=== PATIENT | female | born 1955 | race Caucasian/White ===

== ENCOUNTER 2019-08-30 07:29 | Observation (INO) | payer BC ==
--- OUTSIDE RECORDS SUMMARY | 2019-08-30 07:37 | XMS REPORT | Continuity of Care Document ---
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 Onset: 09/18/2014 Myalgia & Myositis Unspecified Jung Cannon M.D. Onset: 10/02/2014 Chronic pain syndrome Dale Craig M.D. Onset: 04/03/2015 Taking medication Dale Craig M.D. Onset: 04/03/2015 Diverticulitis of colon Dale Craig M.D. Onset: 04/03/2015 Coronary arteriosclerosis Brain Platt M.D., [facility], [facility] Onset: 04/29/2015 Benign essential hypertension Brain Platt M.D., [facility], [facility] Onset: 2014 Social History Type Date Description Comments Sex Unknown ETOH Use Currently consumes 12-15 drinks/week alcohol Tobacco Use Start: Unknown Patient is a former quit smoking 40 years End: Unknown smoker ago, very light smoker 3-4 cigarettes per day Recreational Drug Use Denies Drug Use Smoking Status Reviewed: 08/07/19 Patient is a former quit smoking 40 years smoker ago, very light smoker 3-4 cigarettes per day Exercise Type/Frequency Exercises sporadically walks occationally Allergies, Adverse Reactions, Alerts Description No Known Drug Allergies Medications Active Medications SIG Qnty Indications Ordering Date Provider Azathioprine 1 tb po qday 30tabs Jacob Davis, 07/10/2019 50mg Tablets [employer]ETING ANALYTICS LEAD Hydroxychloroquine take one tablet 180tabs M33.90 Lavon Clark, 2018 Sulfate by mouth twice MD 200mg Tablets a day Prednisone take 2 tablets 60tabs M33.90 Jacob Davis, 07/05/2019 5mg Tablets once daily as MARKETING ANALYTICS LEAD needed Triamcinolone Acetonide Use on oral 5gm Jacob Davis, 02/12/2019 Dental Paste lesions after MARKETING ANALYTICS LEAD 0.1% Paste meals and before bedtime. Bisoprolol 2 tab by mouth 360tabs I10 Jacob Davis, 05/18/2018 Fumarate/Hydrochlorothiaz everyday MARKETING ANALYTICS LEAD manuel 5-6.25mg Tablets Shingrix 2 doses 6 month 2units Z23 Jacob Davis, 02/27/2018 50mcg Suspension Rec apart [employer]ETING ANALYT[employer] LEAD Simvastatin 1 by mouth 90tabs Noa Trotter, 04/20/2016 20mg Tablets every day M.D. Losartan Potassium 1 by mouth 30tabs I10 Jacob Davis, 12/04/2012 100mg every day MARKETING ANALYTICS LEAD Tablets Hydrocortisone Cream 2.5 Apply a thin Unknown % layer to face up to twice daily Ketoconazole apply thin film Unknown 2% Cream twice daily Tylenol Allergy prn Unknown Multi-Symptom 2-5-325mg Tablets Topiramate 1 tab by mouth 120tabs G43.009 Jacob Davis, 25mg Tablets every morning MARKETING ANALYT[employer] LEAD and 2 tabs every night Zyrtec Allergy 1 by mouth Unknown 10mg Tablets every day Aspirin 1 by mouth Unknown 81mg Tablets every day History Medications Medrol take as directed 21units M33.90 Jacob Davis, 06/25/2019 - 4mg TBPK until finished as MARKETING ANALYTICS LEAD 08/06/2019 medrol dose pack Simvastatin 1 by mouth every 90tabs Jacob Davis, 04/03/2019 - 20mg day MARKETING ANALYT[employer] LEAD 04/08/2019 Tablets Simvastatin 1 by mouth every 90tabs Zsofia Ryan, 04/03/2019 - 20mg day MARKETING ANALYTICS LEAD 04/03/2019 Tablets Simvastatin 2 by mouth every 180tabs Zsofia Ryan, 04/03/2019 - 10mg day MARKETING ANALYT[employer] LEAD 04/03/2019 Tablets Medications Administered in Office Medication SIG Qnty Indications Ordering Provider Date Depomedrol 40MG Juan Ramon Bloom M.D. 08/06/2018 Injection Depomedrol 40MG Juan Ramon Bloom M.D. 08/06/2018 Injection Immunizations CPT Code Status Date Vaccine Lot # [id number] Given 08/22/2018 Tdap - Tetanus/Diptheria/Acellular Pertussis [id number] Given 09/07/2015 Influenza Virus Vaccine, Quadrivalent, Split, [id number] Preservative Free Vital Signs Date Vital Result Comment 08/07/2019 9:50am Height 66 inches 5'6" Weight 174.00 lb Heart Rate 66 /min BP Systolic 141 mmHg BP Diastolic 74 mmHg Body Temperature 97.8 F O2 % BldC Oximetry 99 % BMI (Body Mass Index) 28.1 kg/m2 07/05/2019 10:09am Height 66 inches 5'6" Weight 172.00 lb BMI (Body Mass Index) 27.8 kg/m2 Results Test Date Facility Test Result H/L Range Note Thiopurine [facility] Interpretation See Comment 1 Methyltransferase [address] [place] [address] [phone] 6-Methylmercaptopurine 3.38 nmol/mL/h 3.00-6.66 6Methylmercaptopurine Riboside 4.65 nmol/mL/h Abnormal 5.04-9.57 6-Methylthioguanine riboside 3.43 nmol/mL/h 2.70-5.84 Reviewed By See Comment 2 Protein 06/25/2019 [facility] Total 6.7 g/dL 6.3 - Electrophoresis [address] Protein(Pep) 7.9 [place] [address] [phone] Albumin 3.5 g/dL 3.4-4.7 Alpha-1 Globulin 0.3 g/dL 0.1-0.3 Alpha-2 Globulin 1.1 g/dL Abnormal 0.6-1.0 Beta Globulin 1.1 g/dL 0.7-1.2 Gamma Globulin 0.9 g/dL 0.6-1.6 Albumin/Globulin Ratio 1.06 Impression See Comment 3 Laboratory test 06/25/2019 [facility] Anti Double <12.3 IU/mL 4 [place] [address] AB [phone] Neutrophil 06/25/2019 [facility] C-Anca Negative Negative Cytoplasmic [place] [address] [phone] P-Anca Negative Negative 5 Em Igg AB Reflex 06/25/2019 [facility] SS-A/Ro Antibody <0.[address] [place] [address] [phone] SS-B/La Antibody <0.2 U 7 Sm (Camp) IgG Antibody <0.2 U 8 [employer] Antibody, IgG <0.2 U 9 Scl-70 (Scleroderma) Antibody 0.2 U 10 Irene-1 Antibody <0.2 U 11 Laboratory test 06/25/2019 [facility] Nuclear AB <1:80 12 finding [facility] (Ju) By Ifa (Negative) [place] [address] Igg [phone] Laboratory test 06/25/2019 [facility] C Reactive 13.29 mg/L High <8.0 finding [facility] Protein 1 [place] [address] [phone] Creatine Kinase(CK) 66 U/L Normal 10-223 Comp Metabolic 06/25/2019 [facility] Sodium 135 mmol/L Normal 135-[address] [place] [address] [phone] Potassium 3.9 mmol/L Normal 3.5-5.0 Chloride 99 mmol/L Low 101-111 Co2 Carbon Dioxide 29 mmol/L Normal 22-32 Anion Gap 7 mmol/L Normal 2-11 Glucose 100 mg/dL Normal 70-100 Blood Urea Nitrogen 12 mg/dL Normal 6-24 Creatinine 0.79 mg/dL Normal 0.51-0.95 BUN/Creatinine Ratio 15.2 Normal 8-20 Calcium 9.7 mg/dL Normal 8.6-10.3 Total Protein 6.8 g/dL Normal 6.4-8.9 Albumin 4.5 g/dL Normal 3.2-5.2 Globulin 2.3 g/dL Normal 2-4 Albumin/Globulin Ratio 2.0 Normal 1-3 Total Bilirubin 0.50 mg/dL Normal 0.2-1.0 Alkaline Phosphatase 75 U/L Normal 34-104 Alt 25 U/L Normal 7-52 Ast 26 U/L Normal 13-39 Egfr Non- 73.3 >60 Egfr 88.7 >60 13 Scleroderma AB 06/25/2019 [facility] Scleroderma Ab 0.2 U 14 (SCL70) [address] [place] [address] [phone] Laboratory test 06/25/2019 [facility] Erythrocyte Sed 37 mm/Hr High 0-[address] [place] [address] [phone] Irene-1 Antibody <0.2 U 15 CBC Auto 06/25/2019 [facility] White Blood 7.1 10^3/uL Normal 3.5-10.[address] [place] [place] [address] [phone] Red Blood Count 4.19 10^6/uL Normal 3.70-4.87 Hemoglobin 13.3 g/dL Normal 12.0-16.0 Hematocrit 39 % Normal 35-47 Mean Corpuscular Volume 93 fL Normal 80-97 Mean Corpuscular Hemoglobin 32 pg High 27-31 Mean Corpuscular HGB Conc 34 g/dL Normal 31-36 Red Cell Distribution Width 13 % Normal 10-15 Platelet Count 304 10^3/uL Normal 150-450 Mean Platelet Volume 7.5 fL Normal 7.4-10.4 Abs Neutrophils 4.1 10^3/uL Normal 1.5-7.7 Abs Lymphocytes 2.2 10^3/uL Normal 1.0-4.8 Abs Monocytes 0.6 10^3/uL Normal 0-0.8 Abs Eosinophils 0.2 10^3/uL Normal 0-0.6 Abs Basophils 0.0 10^3/uL Normal 0-0.2 Abs Nucleated RBC 0.0 10^3/uL Granulocyte % 56.9 % Lymphocyte % 31.1 % Monocyte % 8.5 % Eosinophil % 2.9 % Basophil % 0.6 % Nucleated Red Blood Cells % 0.0 Urinalysis Profile 06/25/2019 [facility] Urine Color Straw [address] [place] [address] [phone] Urine Appearance Clear Urine Specific [place] 1.009 Low 1.010-1.030 Urine pH 6.0 Normal 5-9 Urine Urobilinogen Negative Negative Urine Ketones Negative Negative Urine Protein Negative Negative Urine Leukocytes Negative Negative Urine Blood Negative Negative Urine Nitrite Negative Negative Urine Bilirubin Negative Negative Urine Glucose Negative Negative Laboratory 06/06/2019 [facility] Surgical SEE 16, 17 test finding [address] [place] [address] BELOW [phone] Laboratory 02/08/2019 [facility] Vitamin D Total 33.8 Normal 20- test finding [address] 25(Oh) ng/mL 50 [place] [address] [phone] Lipid Profile 02/08/2019 [facility] Triglycerides 227 mg/dL 18 (Trig/Chol/HDL [address] ) [place] [address] [phone] Cholesterol 195 mg/dL 19 HDL Cholesterol 52.4 mg/dL 20 LDL Cholesterol 97 mg/dL 21 Comp Metabolic 02/08/2019 [facility] Sodium 139 mmol/L Normal 135-[address] [place] [address] [phone] Potassium 4.1 mmol/L Normal 3.5-5.0 Chloride 105 mmol/L Normal 101-111 Co2 Carbon Dioxide 28 mmol/L Normal 22-32 Anion Gap 6 mmol/L Normal 2-11 Glucose 104 mg/dL High 70-100 Blood Urea Nitrogen 16 mg/dL Normal 6-24 Creatinine 0.81 mg/dL Normal 0.51-0.95 BUN/Creatinine Ratio 19.8 Normal 8-20 Calcium 9.3 mg/dL Normal 8.6-10.3 Total Protein 6.5 g/dL Normal 6.4-8.9 Albumin 4.2 g/dL Normal 3.2-5.2 Globulin 2.3 g/dL Normal 2-4 Albumin/Globulin Ratio 1.8 Normal 1-3 Total Bilirubin 0.40 mg/dL Normal 0.2-1.0 Alkaline Phosphatase 69 U/L Normal 34-104 Alt 22 U/L Normal 7-52 Ast 23 U/L Normal 13-39 Egfr Non- 71.2 >60 Egfr 86.1 >60 22 Laboratory test 02/06/2019 [facility] Cytology SEE RESULT 23, [address] [place] [address] [phone] 1 *Normal* In this whole blood sample, the profile of activity of thiopurine methyltransferase using three different substrates was normal or essentially normal. ADDITIONAL INFORMATION Liquid Chromatography-Tandem Mass Spectrometry (LC-MS/MS) This test was developed and its performance characteristics determined by [facility] in a manner consistent with CLIA requirements. This test has not been cleared or approved by the U.S. Food and Drug Administration. 2 RESULT: Jonny Rodgers M.D., Ph.D. Test Performed by: [facility] [place] [address] Cooker Tender: Migue Navarro M.D. Ph.D.; CLIA# [id number] 3 RESULT: No apparent monoclonal protein on serum electrophoresis. Test Performed by: [facility] [place] [address] 4 REFERENCE VALUE <30.0 (Negative) Test Performed by: [facility] [place] [address] 5 Negative for cANCA and pANCA patterns by immunofluorescence. ADDITIONAL INFORMATION This test was developed and its performance characteristics determined by [facility] in a manner consistent with CLIA requirements. This test has not been cleared or approved by the U.S. Food and Drug Administration. Test Performed by: [facility] [place] [address] 6 REFERENCE VALUE <1.0 (Negative) 7 REFERENCE VALUE <1.0 (Negative) 8 REFERENCE VALUE <1.0 (Negative) 9 REFERENCE VALUE <1.0 (Negative) 10 REFERENCE VALUE <1.0 (Negative) 11 REFERENCE VALUE <1.0 (Negative) Test Performed by: [facility] [facility] [place] [employer] [place] [address] 12 <1:80 (Negative) REFERENCE VALUE <1:80 (Negative) Test Performed by: [facility] [place] [employer] [place] [address] 13 Because ethnic data is not always readily available, this report includes an eGFR for both -Americans and non- Americans. The National Kidney Disease Education Program (NKDEP) does not endorse the use of the MDRD equation for patients that are not between the ages of 18 and 70, are , have extremes of body size, muscle mass, or nutritional status, or are non- or non-. According to the National Kidney Foundation, irrespective of diagnosis, the stage of the disease is based on the level of kidney function: Stage Description GFR(mL/min/1.73 m(2)) 1 Kidney damage with normal or decreased GFR 90 2 Kidney damage with mild decrease in GFR 60-89 3 Moderate decrease in GFR 30-59 4 Severe decrease in GFR 15-29 5 Kidney failure <15 (or dialysis) 14 REFERENCE VALUE <1.0 (Negative) Test Performed by: [facility] [place] [address] 15 REFERENCE VALUE <1.0 (Negative) Test Performed by: [facility] [place] [address] 16 [id number]:Morphology: violaceous edematous plaques on the upper and lower eyelids extending onto the 17 SEE RESULT BELOW Name: NAYANA OCHOA : [address]: Venus Hanna MD Acct: [id number] Unit: [id number] AGE: 63 Location: [facility] Re06/06/19 SEX: F Status: REG REF SPEC: [id number] ROBERT: 06/06/19-[address]: Venus Hanna MD REQ: [id number] RECD: 06/06/19 STATUS: RICHARD OAKLEY DR: 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 COMMENT: Fungal staining is negative. The histologic features are suspicious for a connective tissue process such as dermatomyositis or lupus erythematosus. Contact dermatitis is also in the histologic differential diagnosis. PRE-OPERATIVE DIAGNOSIS Violaceous edematous plaques on the upper and lower eyelids extending onto the upper cheeks, eyelid dermatitis vs dermatomyositis GROSS DESCRIPTION The specimen is received in formalin labeled, Left Superior Cheek, and consists of a 0.5 cm lyon-white circular skin punch excised to maximum depth 0.3 cm, which is bisected and submitted entirely in one cassette. MICROSCOPIC DESCRIPTION Histologic sections show a punch biopsy of skin excised to include subcutaneous tissue. Patchy parakeratosis overlies epidermis with marked spongiosis, basal layer vacuolar change, focally necrotic keratinocytes, and occasional lymphocytes at the dermal- epidermal junction in interface-like pattern. In the superficial to mid dermis solar elastosis is prominent along with a perivascular inflammatory infiltrate composed of lymphocytes. Deeper levels of CONTINUED ON NEXT PAGE DEPARTMENT OF PATHOLOGY, [address] [place] [address] Donn Connell M.D. Director [facility] # [id number] RUN DATE: 06/07/19 [facility] LAB LIVE PAGE 2 Patient: NAYANA OCHOA [id number] (Continued) MICROSCOPIC DESCRIPTION (Continued) sectioning show similar histologic features. A PAS stain, with appropriately reacting controls, is negative for fungal organisms and shows mild basement membrane thickening. An Alcian blue stain, with appropriately reacting controls, shows mildly increased intradermal mucin. Signed by and Reported on: Rebecca Lopez MD 06/07/19 1545 END OF REPORT DEPARTMENT OF PATHOLOGY, [address] [place] [address] Donn Connell M.D. Director [facility] # [id number] 18 Desirable: <150 Borderline High: 150-199 High: 200-499 Very High: >500 19 Desirable: <200 Borderline High: 200-239 High: >239 20 Low: <40 Desirable: 40-60 High: >60 21 Desirable: <100 Near Optimal: 100-129 Borderline High: 130-159 High: 160-189 Very High: >189 22 Because ethnic data is not always readily available, this report includes an eGFR for both -Americans and non- Americans. The National Kidney Disease Education Program (NKDEP) does not endorse the use of the MDRD equation for patients that are not between the ages of 18 and 70, are , have extremes of body size, muscle mass, or nutritional status, or are non- or non-. According to the National Kidney Foundation, irrespective of diagnosis, the stage of the disease is based on the level of kidney function: Stage Description GFR(mL/min/1.73 m(2)) 1 Kidney damage with normal or decreased GFR 90 2 Kidney damage with mild decrease in GFR 60-89 3 Moderate decrease in GFR 30-59 4 Severe decrease in GFR 15-29 5 Kidney failure <15 (or dialysis) 23 [id number] 24 SEE RESULT BELOW Name: NAYANA OCHOA : [address]: Jacob Davis NP Acct: [id number] Unit: [id number] AGE: 63 Location: [facility] Re02/06/19 SEX: F Status: REG REF SPEC: [id number] ROBERT: 02/06/19-[address] [facility] [address]: Jacob Davis NP REQ: [id number] RECD: 02/06/19 STATUS: SOUT _ ORDERED: TP IMAGE ANALYS, HPV/Thin Prep COMMENTS: [id number] Negative for Intraepithelial lesion or Malignancy Date Time Test Result Flag (u) Normal Range 02/06/19 0957 @ HPV RNA Negative Negative @ @ The high-risk HPV types detected by the assay include: 16, @ 18, 31, 33, 35, 39, 45, 51, 52, 56, 58, 59, 66, and 68. A. Ectocervical/Endocervical Specimen Adequacy: Satisfactory of evaluation Transformation zone component cannot be definitely identified due to presence of atrophy or other hormonal changes Patient Information: HPV: High risk HPV RNA testing regardless of pap results. Actual Specimen Date: 02/06/19 ?: N Post Menopausal?: Y Hysterectomy?: N Previous Abnormal Pap Smears?:N Signed by and Reported on: YOLANDA Porter (ASCP) [id number] This Pap test was evaluated with the assistance of the Pipelinep Test Imaging System. Due to cytologic findings at the tool polishing machine operator microscope, comprehensive manual rescreening by a Instrument Tester may be required. The Pap Smear is a screening test designed to aid in the detection of premalignant and malignant conditions of the uterine cervix. It is not a diagnostic procedure and should not be used as the sole means of detecting cervical cancer. Both false- positive and false- negative reports do occur. Depending on your risk status, a Pap smear should be obtained and evaluated every 1-3 years. END OF REPORT DEPARTMENT OF PATHOLOGY, [address] [place] [address] Donn Connell M.D. 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 10:00a [facility] TONY s, unsp, organ involvement unspecified R21 Rash and other nonspecific skin eruption M35.3 Polymyalgia rheumatica Z79.899 Other skilled nursing (current) drug therapy Z79.52 salvage determiner (current) use of systemic steroids Office 06/25/2019 Rheumatology Jacob 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, unspecified, organ Lavon Clark MD involvement unspecified 08/07/2019 M35.3 Polymyalgia rheumatica Lavon Clark MD 08/07/2019 Z79.899 Other skilled nursing (current) drug therapy Lavon Clark MD 08/07/2019 R53.83 Fatigue Lavon Clark MD 07/05/2019 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, unspecified, organ Zsofia Ryan, MARKETING ANALYTICS LEAD involvement unspecified 07/05/2019 R21 Rash and other nonspecific skin eruption Zsofia Ryan, MARKETING ANALYTICS LEAD 07/05/2019 M35.3 Polymyalgia rheumatica Zsofia Ryan, MARKETING ANALYTICS LEAD 07/05/2019 Z79.899 Other skilled nursing (current) drug therapy Zsofia Ryan, MARKETING ANALYTICS LEAD 07/05/2019 Z79.52 salvage determiner (current) use of systemic steroids Zsofia Ryan , MARKETING ANALYTICS LEAD 06/25/2019 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, unspecified, organ Zsofia Ryan, MARKETING ANALYTICS LEAD involvement unspecified 06/25/2019 R21 Rash and other nonspecific skin eruption Zsofia Ryan, MARKETING ANALYTICS LEAD 06/25/2019 M35.3 Polymyalgia rheumatica Zsofijuan carlos Davis, MARKETING ANALYTICS LEAD 06/25/2019 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 Jacob Davis, MARKETING ANALYTICS LEAD 02/06/2019 Z00.00 Encounter for general adult medical examination TONY Lewis without abno 02/06/2019 I10 Essential (primary) hypertension Jacob Davis, MARKETING ANALYTICS LEAD 02/06/2019 E78.5 Hyperlipidemia, unspecified Zsofia Ryan, MARKETING ANALYTICS LEAD 02/06/2019 M81.8 Other osteoporosis without current pathological Zsofijuan carlos Davis, MARKETING ANALYTICS LEAD fracture 02/06/2019 M25.559 Pain in unspecified hip Jacob Davis, MARKETING ANALYTICS LEAD 02/06/2019 R26.89 Other abnormalities of gait and mobility Marelyofijuan carlos Davis, MARKETING ANALYTICS LEAD 02/06/2019 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 Jacob Davis, MARKETING ANALYTICS LEAD 02/06/2019 Z23 Encounter for immunization Jacob Davis, MARKETING ANALYTICS LEAD 02/06/2019 Z12.4 Encounter for screening for malignant neoplasm TONY Lewis of cervix Plan of Treatment Future Appointment(s):08/14/2019 10:00 am - [facility] Lavon Clark, MD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, unspecified, organ involvement unspecifiedNew Labs:Aldolase, Ordered: Creatine Kinase(CK), Ordered: 08/07/19Erythrocyte Sed Rate, Ordered: C Reactive Protein, Ordered: 08/07/19Quantiferon-TB Gold Plus, Ordered: TSH (Thyroid Stim Horm), Ordered: 08/07/19Miscellaneous Test, Ordered: New Orders:Pulmonary Exercise Test, Ordered: 08/07/19Referral:[facility] Sleep Clinic , Sleep Disord,Diag/ClinicFollow up:3-4 weeks with WnbroiN41.3 Polymyalgia uthkosarorL66.899 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 Eval and treat, thanks. [address] [place] [address] [phone]
--- OUTSIDE RECORDS SUMMARY | 2019-08-30 07:37 | XMS REPORT | Continuity of Care Document ---
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 Onset: 09/18/2014 Myalgia & Myositis Unspecified Jung Cannon M.D. Onset: 10/02/2014 Chronic pain syndrome Dale Craig M.D. Onset: 04/03/2015 Taking medication Dale Craig M.D. Onset: 04/03/2015 Diverticulitis of colon Dale Craig M.D. Onset: 04/03/2015 Coronary arteriosclerosis Brain Platt M.D., [facility] Onset: 04/29/2015 Benign essential hypertension Brain Platt M.D., [facility] Onset: 2014 Social History Type Date Description Comments Sex Unknown ETOH Use Currently consumes 12-15 drinks/week alcohol Tobacco Use Start: Unknown Patient is a former quit smoking 40 years End: Unknown smoker ago, very light smoker 3-4 cigarettes per day Recreational Drug Use Denies Drug Use Smoking Status Reviewed: 07/05/19 Patient is a former quit smoking 40 years smoker ago, very light smoker 3-4 cigarettes per day Exercise Type/Frequency Exercises sporadically walks occationally Allergies, Adverse Reactions, Alerts Description No Known Drug Allergies Medications Active Medications SIG Qnty Indications Ordering Date Provider Hydroxychloroquine take one tablet 60tabs M33.90 Jacob Davis, 07/05/2019 Sulfate by mouth twice EMERGENCY DEPARTMENT MANAGER 200mg Tablets a day Prednisone take 2 tablets 60tabs M33.90 Marelyofijuan carlos Davis, 07/05/2019 5mg Tablets once daily as EMERGENCY DEPARTMENT MANAGER needed Medrol take as 21units M33.90 Jacob Davis, 06/25/2019 4mg TBPK directed until EMERGENCY DEPARTMENT MANAGER finished as medrol dose pack Triamcinolone Acetonide Use on oral 5gm Jacob Davis, 02/12/2019 Dental Paste lesions after EMERGENCY DEPARTMENT MANAGER 0.1% Paste meals and before bedtime. Bisoprolol 2 tab by mouth 360tabs I10 Jacob Davis, 05/18/2018 Fumarate/Hydrochlorothiaz everyday EMERGENCY DEPARTMENT MANAGER manuel 5-6.25mg Tablets Shingrix 2 doses 6 month 2units Z23 Jacob Davis, 02/27/2018 50mcg Suspension Rec apart EMERGENCY DEPARTMENT MANAGER Simvastatin 1 by mouth 90tabs Noa Trotter, 04/20/2016 20mg Tablets every day M.D. Losartan Potassium 1 by mouth 90tabs I10 Jacob Davis, 12/04/2012 100mg every day EMERGENCY DEPARTMENT MANAGER Tablets Hydrocortisone Cream 2.5 Apply a thin Unknown % layer to face up to twice daily Ketoconazole apply thin film Unknown 2% Cream twice daily Tylenol Allergy prn Unknown Multi-Symptom 2-5-325mg Tablets Topiramate 1 tab by mouth 120tabs G43.009 Jacob Davis, 25mg Tablets every morning EMERGENCY DEPARTMENT MANAGER and 2 tabs every night Zyrtec Allergy 1 by mouth Unknown 10mg Tablets every day Aspirin 1 by mouth Unknown 81mg Tablets every day History Medications Simvastatin 1 by mouth every 90tabs Jacob Davis, 04/03/2019 - 20mg Tablets day EMERGENCY DEPARTMENT MANAGER 04/08/2019 Simvastatin 1 by mouth every 90tabs Jacob Davis, 04/03/2019 - 20mg Tablets day EMERGENCY DEPARTMENT MANAGER 04/03/2019 Simvastatin 2 by mouth every 180tabs Jacob Davis, 04/03/2019 - 10mg Tablets day EMERGENCY DEPARTMENT MANAGER 04/03/2019 Medications Administered in Office Medication SIG Qnty Indications Ordering Provider Date Depomedrol 40MG Juan Ramon Bloom M.D. 08/06/2018 Injection Depomedrol 40MG Juan Ramon Bloom M.D. 08/06/2018 Injection Immunizations CPT Code Status Date Vaccine Lot # [id number] Given 08/22/2018 Tdap - Tetanus/Diptheria/Acellular Pertussis [id number] Given 09/07/2015 Influenza Virus Vaccine, Quadrivalent, Split, [id number] Preservative Free Vital Signs Date Vital Result Comment 07/05/2019 10:09am Height 66 inches 5'6" Weight 172.00 lb BMI (Body Mass Index) 27.8 kg/m2 06/25/2019 11:21am Height 66 inches 5'6" Weight 169.50 lb Heart Rate 61 /min BP Systolic 156 mmHg BP Diastolic 90 mmHg Body Temperature 97.2 F O2 % BldC Oximetry 97 % BMI (Body Mass Index) 27.4 kg/m2 Results Test Date Facility Test Result H/L Range Note Protein 06/25/2019 [facility] Total 6.7 g/dL 6.3 - 7.[address] Protein([place] [address] ) [phone] Albumin 3.5 g/dL 3.4-4.7 Alpha-1 Globulin 0.3 g/dL 0.1-0.3 Alpha-2 Globulin 1.1 g/dL Abnormal 0.6-1.0 Beta Globulin 1.1 g/dL 0.7-1.2 Gamma Globulin 0.9 g/dL 0.6-1.6 Albumin/Globulin Ratio 1.06 Impression See Comment 1 Laboratory test 06/25/2019 [facility] Anti Double <12.3 IU/mL [address] [place] [address] AB [phone] Neutrophil 06/25/2019 [facility] C-Anca Negative Negative Cytoplasmic AB [address] [place], [place] [id number] [phone] P-Anca Negative Negative 3 Em Igg AB Reflex 06/25/2019 [facility] SS-A/Ro Antibody <0.[address] [place] [address] [phone] SS-B/La Antibody <0.2 U 5 Sm (Camp) IgG Antibody <0.2 U 6 MAIL CLERK Antibody, IgG <0.2 U 7 Scl-70 (Scleroderma) Antibody 0.2 U 8 Irene-1 Antibody <0.2 U 9 Laboratory test 06/25/2019 [facility] Nuclear AB <1:80 10 finding 101 (Ju) By Ifa (Negative) [place] [address] Igg [phone] Laboratory test 06/25/2019 [facility] C Reactive 13.29 mg/L High <8.[address] Protein 1 [place] [address] [phone] Creatine Kinase(CK) 66 U/L Normal 10-223 Comp Metabolic 06/25/2019 [facility] Sodium 135 mmol/L Normal 135-[address] [place] [address] [phone] Potassium 3.9 mmol/L Normal 3.5-5.0 Chloride 99 [...] Egfr Non- 73.3 >60 Egfr 88.7 >60 11 Scleroderma AB 06/25/2019 [facility] Scleroderma Ab 0.2 U 12 (SCL70) [address] [place] [address] [phone] Laboratory test 06/25/2019 [facility] Erythrocyte Sed 37 mm/Hr High 0-[address] [place] [address] [phone] Irene-1 Antibody <0.2 U 13 CBC Auto 06/25/2019 [facility] White Blood 7.1 10^3/uL Normal 3.5-10.[address] [place] [address] [phone] Red Blood Count 4.19 10^6/uL Normal 3.70-4.87 [...] Blood Cells % 0.0 Urinalysis Profile 06/25/2019 [facility] Urine Color Straw [address] [place], [place] [id number] [phone] Urine Appearance Clear Urine Specific [place] 1.009 Low 1.010-1.030 Urine pH 6.0 Normal 5-9 Urine Urobilinogen Negative Negative Urine Ketones Negative Negative Urine Protein Negative Negative Urine Leukocytes Negative Negative Urine Blood Negative Negative Urine Nitrite Negative Negative Urine Bilirubin Negative Negative Urine Glucose Negative Negative Laboratory 06/06/2019 [facility] Surgical SEE 14, 15 test finding [address] [place] [address] BELOW [phone] Laboratory 02/08/2019 [facility] Vitamin D Total 33.8 Normal 20- test finding [address] 25(Oh) ng/mL 50 [place] [address] [phone] Lipid Profile 02/08/2019 [facility] Triglycerides 227 mg/dL 16 (Trig/Chol/HDL [address] ) [place] [address] [phone] Cholesterol 195 mg/dL 17 HDL Cholesterol 52.4 mg/dL 18 LDL Cholesterol 97 mg/dL 19 Comp Metabolic 02/08/2019 [facility] Sodium 139 mmol/L Normal 135-[address] [place] [address] [phone] Potassium 4.1 mmol/L Normal 3.5-5.0 Chloride 105 [...] Egfr Non- 71.2 >60 Egfr 86.1 >60 20 Laboratory test 02/06/2019 [facility] Cytology SEE RESULT 21, [address] [place] [address] [phone] 1 RESULT: No apparent monoclonal protein on serum electrophoresis. Test Performed by: [facility] - [address] [address] 2 REFERENCE VALUE <30.0 (Negative) Test Performed by: [facility] [address] 3 Negative for cANCA and pANCA patterns by immunofluorescence. ADDITIONAL INFORMATION This test was developed and its performance characteristics determined by [facility] in a manner consistent with CLIA requirements. This test has not been cleared or approved by the U.S. Food and Drug Administration. Test Performed by: [facility] [place] [address] 4 REFERENCE VALUE <1.0 (Negative) 5 REFERENCE VALUE <1.0 (Negative) 6 REFERENCE VALUE <1.0 (Negative) 7 REFERENCE VALUE <1.0 (Negative) 8 REFERENCE VALUE <1.0 (Negative) 9 REFERENCE VALUE <1.0 (Negative) Test Performed by: [facility] [place] [address] 10 <1:80 (Negative) REFERENCE VALUE <1:80 (Negative) Test Performed by: [address] [address] 11 Because ethnic data is not always readily [...] 15-29 5 Kidney failure <15 (or dialysis) 12 REFERENCE VALUE <1.0 (Negative) Test Performed by: [facility] - [address] [address] 13 REFERENCE VALUE <1.0 (Negative) Test Performed by: [address] [address] 14 [id number]:Morphology: violaceous edematous plaques on the upper and lower eyelids extending onto the 15 SEE RESULT BELOW Name: NAYANA OCHOA : [address]: Venus Hanna MD Acct: [id number] Unit: [id number] AGE: 63 Location: [facility] Re06/06/19 SEX: F Status: REG REF SPEC: [id number] ROBERT: 06/06/19-[address]: Venus Hanna MD REQ: [id number] RECD: 06/06/19 STATUS: RICHARD OAKLEY DR: Jacob Davis PUBLIC SAFETY OFFICER _ ORDERED: LEVEL 4, SPEC STAIN ORG, SPEC ST NON-ORG COMMENTS: [id number] FINAL DIAGNOSIS Skin, left superior cheek, biopsy: [...] CONTINUED ON NEXT PAGE DEPARTMENT OF PATHOLOGY, [address] [place] [address] Donn Connell M.D. Director [facility] # [id number] RUN DATE: 06/07/19 [facility] LAB LIVE PAGE 2 Patient: NAYANA OCHOA [id number] (Continued) MICROSCOPIC DESCRIPTION (Continued) sectioning show similar histologic features. A PAS stain, with appropriately reacting controls, is negative for fungal organisms and shows mild basement membrane thickening. An Alcian blue stain, with appropriately reacting controls, shows mildly increased intradermal mucin. Signed by and Reported on: Rebecca Lopez MD 06/07/19 1545 END OF REPORT DEPARTMENT OF PATHOLOGY, [address] [place] [address] Donn Connell M.D. Director [facility] # [id number] 16 Desirable: <150 Borderline High: 150-199 High: 200-499 Very High: >500 17 Desirable: <200 Borderline High: 200-239 High: >239 18 Low: <40 Desirable: 40-60 High: >60 19 Desirable: <100 Near Optimal: 100-129 Borderline High: 130-159 High: 160-189 Very High: >189 20 Because ethnic data is not always readily [...] 15-29 5 Kidney failure <15 (or dialysis) 21 [id number] 22 SEE RESULT BELOW Name: NAYANA OCHOA : [address]: Jacob Davis NP Acct: [id number] Unit: [id number] AGE: 63 Location: [facility] Re02/06/19 SEX: F Status: REG REF SPEC: [id number] ROBERT: 02/06/[address]: Jacob Davis NP REQ: [id number] RECD: 02/06/19 STATUS: SOUT _ ORDERED: TP IMAGE ANALYS, HPV/Thin Prep COMMENTS: [id number] Negative for Intraepithelial lesion or Malignancy Date [...] by and Reported on: YOLANDA Porter (ASCP) 1430 This Pap test was evaluated with the assistance of the AB TastyPrep Test Imaging System. Due to cytologic findings at the conservation enforcement officer microscope, comprehensive manual rescreening by a Hand Striper may be required. The Pap Smear is [...] years. END OF REPORT DEPARTMENT OF PATHOLOGY, [address] [place] [address] Donn Connell M.D. 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 11:30a [facility] EMERGENCY DEPARTMENT MANAGER s, unsp, organ involvement unspecified R21 Rash and other nonspecific skin eruption M35.3 Polymyalgia rheumatica 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 Office Visit 02/06/2019 8:40a [facility] Internal Jacob Davis, Z00.00 [facility] EM[facility]GENCY DEPARTMENT MANAGER general adult medical exam w/o abnormal findings I10 Essential (primary) hypertension E78.5 Hyperlipidemia, unspecified M81.8 Other osteoporosis without current pathological fracture M25.559 Pain in unspecified hip R26.89 Other abnormalities of gait and mobility 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 Z23 Encounter for immunization Z12.4 Encounter for screening for malignant neoplasm of cervix Assessments Date Code Description Provider 07/05/2019 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, unspecified, organ Jacob Davis, EMERGENCY DEPARTMENT MANAGER involvement unspecified 07/05/2019 R21 Rash and other nonspecific skin eruption Jacob Davis, EMERGENCY DEPARTMENT MANAGER 07/05/2019 M35.3 Polymyalgia rheumatica Jacob Davis, EMERGENCY DEPARTMENT MANAGER 07/05/2019 Z79.899 Other terminal supervisor (current) drug therapy Jacob Davis, EMERGENCY DEPARTMENT MANAGER 07/05/2019 Z79.52 buttermaker helper (current) use of systemic steroids Jacob Davis , EMERGENCY DEPARTMENT MANAGER 06/25/2019 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, unspecified, organ Zsjudy Davis, EMERGENCY DEPARTMENT MANAGER involvement unspecified 06/25/2019 R21 Rash and other nonspecific skin eruption Jacob Davis, EMERGENCY DEPARTMENT MANAGER 06/25/2019 M35.3 Polymyalgia rheumatica Jacob Davis, EMERGENCY DEPARTMENT MANAGER 06/25/2019 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 Jacob Davis, EMERGENCY DEPARTMENT MANAGER 02/06/2019 Z00.00 Encounter for general adult medical examination TONY Lewis without abno 02/06/2019 I10 Essential (primary) hypertension Jacob Davis, EMERGENCY DEPARTMENT MANAGER 02/06/2019 E78.5 Hyperlipidemia, unspecified Jacob Davis, EMERGENCY DEPARTMENT MANAGER 02/06/2019 M81.8 Other osteoporosis without current pathological TONY Lewis fracture 02/06/2019 M25.559 Pain in unspecified hip TONY Lewis 02/06/2019 R26.89 Other abnormalities of gait and mobility Jacob Davis, EMERGENCY DEPARTMENT MANAGER 02/06/2019 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 Jacob Davis, EMERGENCY DEPARTMENT MANAGER 02/06/2019 Z23 Encounter for immunization TONY Lewis 02/06/2019 Z12.4 Encounter for screening for malignant neoplasm TONY Lewis of cervix Plan of Treatment Future Appointment(s):08/14/2019 10:00 am - TONY Lewis at [facility] Internal Medicine - [facility]07/05/2019 - GORDON LewisP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, unspecified, organ involvement unspecifiedNew Medication:Hydroxychloroquine Sulfate 200 mg - take one tablet by mouth twice a dayPrednisone 5 mg - take 2 tablets once daily as neededNew Labs:Miscellaneous Test, Ordered: Comments:Dermatomyositis is one of a group of muscle diseases known as the inflammatory myopathies, which arecharacterized by chronic muscle inflammation accompanied by muscle weakness. Dermatomyositis?? cardinal symptom is a skin rash that precedes, accompanies, or follows progressive muscle weakness. You may also experience weight loss, a low-grade fever, inflamed lungs, and be sensitive to light such that the rash or muscle disease gets worse.CausesThe specific underlying cause(s) of dermatomyositis unknown; however, evidence suggests that genetic, immune, and environmental factors play some roleMost cases of dermatomyositis respond to therapy that is directed toward the specific symptoms that are apparent in each individual and thus can vary from one patient to another. The disease is usually more severe and resistant to therapy in individuals with cardiac or pulmonary problems.Skin:Treatment for the skin findings associated with dermatomyositis includes: sun avoidance, sunscreens, topical glucocorticoids, anti-malarial agents, methotrexate, mycophenolate mofetil, and/or intravenous immunoglobulin (IVIg).Muscle: Treatment for the muscle involvement associated with dermatomyositis requires the use of glucocorticoids. Treatment:Will start on hydroxychloroquine today and on Azathioprine in a week if your lab test comes back normal for the enzyme that metabolizing this drug.If you have abnormalityin this enzyme will start on Mtx at 4 tabs/week.I will call next week once I got the lab results.I am giving you Rx for prednisone to take as needed while you are away for your vacationFollow up:f/u with Dr. Clark second week of July.R21 Rash and other nonspecific skin qznsqvomR10.3 Polymyalgia awskgiepfnT10.899 Other terminal supervisor ( current) drug soaarlhX26.52 buttermaker helper (current) use of systemic steroids Functional Status Description No Information Available Mental Status Description No Information Available Referrals Description No Information Available
--- OUTSIDE RECORDS SUMMARY | 2019-08-30 07:37 | XMS REPORT | Continuity of Care Document ---
:1955 External Reference #:[id number] Author Name Lavon Clark MD (transmitted by agent of provider Viviana White) Address [address] [place] [address] Care Team Providers Name Role Phone Randal Campbell III, MD - Internal Care Team Information Medical Delivery Technician [phone] Medicine Problems Active Problems Provider Date Chronic ischemic heart disease Brain Platt M.D., [facility], [facility] Onset: 2013 Essential hypertension Brain Pltat M.D., [facility], [facility] Onset: 04/11/2014 Hyperlipidemia Brain Platt M.D., [facility], [facility] Onset: 04/11/2014 Polymyalgia rheumatica Jung Cannon M.D. Onset: 09/18/2014 Myalgia & Myositis Unspecified Jung Cannon M.D. Onset: 10/02/2014 Chronic pain syndrome Dale Craig M.D. Onset: 04/03/2015 Taking medication Dale Craig M.D. Onset: 04/03/2015 Diverticulitis of colon Dale Craig M.D. Onset: 04/03/2015 Coronary arteriosclerosis Brain Platt M.D., [facility], [facility] Onset: 04/29/2015 Benign essential hypertension Brain Platt M.D., [facility], [facility] Onset: 2014 Social History Type Date [...] qday 30tabs Jacob Davis, 07/10/2019 50mg Tablets [employer] Hydroxychloroquine take one tablet 180tabs M33.90 Lavon Clark, 2018 Sulfate by mouth twice MD 200mg Tablets a day Prednisone take 2 tablets 60tabs M33.90 Jacob Davis, 07/05/2019 5mg Tablets once daily as [employer] needed Triamcinolone Acetonide Use on oral 5gm Jacob Davis, 02/12/2019 Dental Paste lesions after [employer] 0.1% Paste meals and before bedtime. Bisoprolol 2 tab by mouth 360tabs I10 Jacob Davis, 05/18/2018 Fumarate/Hydrochlorothiaz everyday [employer] manuel 5-6.25mg Tablets Shingrix 2 doses 6 month 2units Z23 Jacob Davis, 02/27/2018 50mcg Suspension Rec apart [employer] Simvastatin 1 by mouth 90tabs Noa Trotter, 04/20/2016 20mg Tablets every day M.D. Losartan Potassium 1 by mouth 30tabs I10 Jacob Davis, 12/04/2012 100mg every day [employer] Tablets Hydrocortisone Cream 2.5 Apply a thin Unknown % layer to face up to twice daily Ketoconazole apply thin film Unknown 2% Cream twice daily Tylenol Allergy prn Unknown Multi-Symptom 2-5-325mg Tablets Topiramate 1 tab by mouth 120tabs G43.009 Jacob Davis, 25mg Tablets every morning [employer] and 2 tabs every night Zyrtec Allergy 1 by mouth Unknown 10mg Tablets every day Aspirin 1 by mouth Unknown 81mg Tablets every day History Medications Medrol take as directed 21units M33.90 Jacob Davis, 06/25/2019 - 4mg TBPK until finished as [employer] 08/06/2019 medrol dose pack Simvastatin 1 by mouth every 90tabs Jacob Davis, 04/03/2019 - 20mg day [employer] 04/08/2019 Tablets Simvastatin 1 by mouth every 90tabs Zsofia Ryan, 04/03/2019 - 20mg day [employer] 04/03/2019 Tablets Simvastatin 2 by mouth every 180tabs Zsofia Ryan, 04/03/2019 - 10mg day [employer] 04/03/2019 Tablets Medications Administered in Office Medication SIG Qnty Indications Ordering Provider Date Depomedrol 40MG Juan Ramon Bloom M.D. 08/06/2018 Injection Depomedrol 40MG Juan Ramon Bloom M.D. 08/06/2018 Injection Immunizations CPT Code Status Date Vaccine Lot # [id number] Given 08/22/2018 Tdap - Tetanus/Diptheria/Acellular Pertussis [id number] Given 09/07/2015 Influenza Virus Vaccine, Quadrivalent, Split, [...] Facility Test Result H/L Range Note Thiopurine [facility] Interpretation See Comment 1 Methyltransferase [address] [place] [address] [phone] 6-Methylmercaptopurine 3.38 nmol/mL/h 3.00-6.66 6Methylmercaptopurine Riboside 4.65 nmol/mL/h Abnormal 5.04-9.57 6-Methylthioguanine riboside 3.43 nmol/mL/h 2.70-5.84 Reviewed By See Comment 2 Protein 06/25/2019 [facility] Total 6.7 g/dL 6.3 - Electrophoresis [address] Protein(Pep) 7.9 [place] [address] [phone] Albumin 3.5 g/dL 3.4-4.7 Alpha-1 Globulin 0.3 g/dL 0.1-0.3 Alpha-2 Globulin 1.1 g/dL Abnormal 0.6-1.0 Beta Globulin 1.1 g/dL 0.7-1.2 Gamma Globulin 0.9 g/dL 0.6-1.6 Albumin/Globulin Ratio 1.06 Impression See Comment 3 Laboratory test 06/25/2019 [facility] Anti Double <12.3 IU/mL 4 [place] [address] AB [phone] Neutrophil 06/25/2019 [facility] C-Anca Negative [place] [address] [phone] P-Anca Negative Negative 5 Em Igg AB Reflex 06/25/2019 [facility] SS-A/Ro Antibody <0.[address] [place] [address] [place] [address] [phone] SS-B/La Antibody <0.2 U 7 Sm (Camp) IgG Antibody <0.2 U 8 CHIEF PILOT Antibody, IgG <0.2 U 9 Scl-70 (Scleroderma) Antibody 0.2 U 10 Irene-1 Antibody <0.2 U 11 Laboratory test 06/25/2019 [facility] Nuclear AB <1:80 12 finding [facility] (Ju) By Ifa (Negative) [place] [address] Igg [phone] Laboratory test 06/25/2019 [facility] C Reactive 13.29 mg/L High <8.0 finding [facility] Protein 1 [place] [address] [phone] Creatine Kinase(CK) 66 U/L Normal 10-223 Comp Metabolic 06/25/2019 [facility] Sodium 135 mmol/L Normal 135-145 [place] [address] [phone] Potassium 3.9 mmol/L Normal 3.5-5.0 Chloride 99 [...] Egfr 88.7 >60 13 Scleroderma AB 06/25/2019 [facility] Scleroderma Ab 0.2 U 14 (SCL70) [address] [place], [place] [address] [phone] Laboratory test 06/25/2019 [facility] Erythrocyte Sed 37 mm/Hr High 0-[address] [place] [address] [phone] Irene-1 Antibody <0.2 U 15 CBC Auto 06/25/2019 [facility] White Blood 7.1 10^3/uL Normal 3.5-10.[address] [place] [address] [phone] Red Blood Count 4.19 10^6/uL Normal 3.70-4.87 [...] Blood Cells % 0.0 Urinalysis Profile 06/25/2019 [facility] Urine Color Straw [address] [place] [address] [phone] Urine Appearance Clear Urine Specific Plummer 1.009 Low 1.010-1.030 Urine pH 6.0 Normal 5-9 Urine Urobilinogen Negative Negative Urine Ketones Negative Negative Urine Protein Negative Negative Urine Leukocytes Negative Negative Urine Blood Negative Negative Urine Nitrite Negative Negative Urine Bilirubin Negative Negative Urine Glucose Negative Negative Laboratory 06/06/2019 [facility] Surgical SEE 16, [address] [place] [address] BELOW [phone] Laboratory 02/08/2019 [facility] Vitamin D Total 33.8 Normal 20- test finding [address] 25(Oh) ng/mL 50 [place] [address] [phone] Lipid Profile 02/08/2019 [facility] Triglycerides 227 mg/dL 18 (Trig/Chol/HDL [address] ) [place] [address] [phone] Cholesterol 195 mg/dL 19 HDL Cholesterol 52.4 mg/dL 20 LDL Cholesterol 97 mg/dL 21 Comp Metabolic 02/08/2019 [facility] Sodium 139 mmol/L Normal 135-[address] [place] [address] [phone] Potassium 4.1 mmol/L Normal 3.5-5.0 Chloride 105 [...] Egfr 86.1 >60 22 Laboratory test 02/06/2019 [facility] Cytology SEE RESULT 23, [address] [place] [address] [phone] 1 *Normal* In this whole blood sample, the profile of activity of thiopurine methyltransferase using three different substrates was normal or essentially normal. ADDITIONAL INFORMATION Liquid Chromatography-Tandem Mass Spectrometry (LC-MS/MS) This test was developed and its performance characteristics determined by [facility] in a manner consistent with CLIA requirements. This test has not been cleared or approved by the U.S. Food and Drug Administration. 2 RESULT: Jonny Rodgers M.D., Ph.D. Test Performed by: [place] [address] Health Plan Specialist: Migue Navarro M.D. Ph.D.; CLIA# [id number] 3 RESULT: No apparent monoclonal protein on serum electrophoresis. Test Performed by: [facility] [place] [address] 4 REFERENCE VALUE <30.0 (Negative) Test Performed by: [facility] [place] [address] 5 Negative for cANCA and pANCA patterns by immunofluorescence. ADDITIONAL INFORMATION This test was developed and its performance characteristics determined by [facility] in a manner consistent with CLIA requirements. This test has not been cleared or approved by the U.S. Food and Drug Administration. Test Performed by: [facility] [place] [address] 6 REFERENCE VALUE <1.0 (Negative) 7 REFERENCE VALUE <1.0 (Negative) 8 REFERENCE VALUE <1.0 (Negative) 9 REFERENCE VALUE <1.0 (Negative) 10 REFERENCE VALUE <1.0 (Negative) 11 REFERENCE VALUE <1.0 (Negative) Test Performed by: [facility] [employer] [address] [place] [address] 12 <1:80 (Negative) REFERENCE VALUE <1:80 (Negative) Test Performed by: [facility] [employer] [address] [place] [address] 13 Because ethnic data is not always [...] REFERENCE VALUE <1.0 (Negative) Test Performed by: [facility] [place] [address] 15 REFERENCE VALUE <1.0 (Negative) Test Performed by: [facility] [place] [address] 16 4382-A:Morphology: violaceous edematous plaques on the upper and lower eyelids extending onto the 17 SEE RESULT BELOW Name: NAYANA OCHOA : [address]: Venus Hanna MD Acct: [id number] Unit: [id number] AGE: 63 Location: [facility] Re06/06/19 SEX: F Status: REG REF SPEC: [id number] ROBERT: 06/06/19-[address]: Venus Hanna MD REQ: [id number] RECD: 06/06/19 STATUS: RICHARD OAKLEY DR: Jacob Davis SYSTEMS SOFTWARE MANAGER _ ORDERED: LEVEL 4, SPEC STAIN ORG, SPEC ST NON-ORG COMMENTS: [id number] FINAL DIAGNOSIS Skin, left superior cheek, biopsy: [...] CONTINUED ON NEXT PAGE DEPARTMENT OF PATHOLOGY, [address] [place] [address] Donn Connell M.D. Director [facility] # [id number] RUN DATE: 06/07/19 [facility] LAB LIVE PAGE 2 Patient: NAYANA OCHOA [id number] (Continued) MICROSCOPIC DESCRIPTION (Continued) sectioning show similar histologic features. A PAS stain, with appropriately reacting controls, is negative for fungal organisms and shows mild basement membrane thickening. An Alcian blue stain, with appropriately reacting controls, shows mildly increased intradermal mucin. Signed by and Reported on: Rebecca Lopez MD 06/07/19 1545 END OF REPORT DEPARTMENT OF PATHOLOGY, [address] [place] [address] Donn Connell M.D. Director [facility] # [id number] 18 Desirable: <150 Borderline High: 150-199 High: [...] 5 Kidney failure <15 (or dialysis) 23 [id number] 24 SEE RESULT BELOW Name: NAYANA OCHOA : [address]: Jacob Davis NP Acct: [id number] Unit: [id number] AGE: 63 Location: [facility] Re02/06/19 SEX: F Status: REG REF SPEC: [id number] ROBERT: [birth year][address] [facility] [address]: Jacob Davis NP REQ: [id number] RECD: 02/06/19 STATUS: SOUT _ ORDERED: TP IMAGE ANALYS, HPV/Thin Prep COMMENTS: [id number] Negative for Intraepithelial lesion or Malignancy Date [...] by and Reported on: YOLANDA Porter (ASCP) 9290 This Pap test was evaluated with the assistance of the Inter[employer] Test Imaging System. Due to cytologic findings at the electromagnet crane operator microscope, comprehensive manual rescreening by a Humane Agent may be required. The Pap Smear is [...] years. END OF REPORT DEPARTMENT OF PATHOLOGY, [address] [place] [address] Donn Connell M.D. 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 10:00a [facility] TONY s, unsp, organ involvement unspecified R21 Rash and other nonspecific skin eruption M35.3 Polymyalgia rheumatica Z79.899 Other terminal make up operator (current) drug therapy Z79.52 penitentiary (current) use of systemic steroids Office 06/25/2019 Rheumatology Jacob 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, Visit 11:30a [facility] Rosenthal unsfarhad, organ involvement unspecified R21 Rash and other nonspecific skin eruption M35.3 Polymyalgia rheumatica 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 Office Visit 02/06/2019 8:40a [facility] Internal Jacob Davis, Z00.00 [facility] for [facility] - [facility] [employer]ACH[employer] general adult medical exam w/o abnormal findings [...] rheumatica Lavon Clark MD 08/07/2019 Z79.899 Other alf (current) drug therapy Lavon Clark MD 08/07/2019 R53.83 Fatigue Lavon Clark MD 07/05/2019 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, unspecified, organ Zsofia Ryan, [employer] involvement unspecified 07/05/2019 R21 Rash and other nonspecific skin eruption Zsofia Ryan, [employer] 07/05/2019 M35.3 Polymyalgia rheumatica Zsofia Ryan, [employer] 07/05/2019 Z79.899 Other alf (current) drug therapy Zsofia Ryan, [employer] 07/05/2019 Z79.52 technician terminal and repeater (current) use of systemic steroids Zsofia Ryan , [employer] 06/25/2019 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, unspecified, organ Zsofia Ryan, [employer] involvement unspecified 06/25/2019 R21 Rash and other nonspecific skin eruption Zsofia Ryan, [employer] 06/25/2019 M35.3 Polymyalgia rheumatica Zsofia Ryan, [employer] 06/25/2019 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 Jacob Davis, [employer] 02/06/2019 Z00.00 Encounter for general adult medical examination TONY Lewis without abno 02/06/2019 I10 Essential (primary) hypertension Zsofijuan carlos Davis, [employer] 02/06/2019 E78.5 Hyperlipidemia, unspecified Zsofia Ryan, [employer] 02/06/2019 M81.8 Other osteoporosis without current pathological Zsofia Ryan, [employer] fracture 02/06/2019 M25.559 Pain in unspecified hip Zsofijuan carlos Davis, [employer] 02/06/2019 R26.89 Other abnormalities of gait and mobility Marelyofia Ryan, [employer] 02/06/2019 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 Jacob Davis, [facility] 02/06/2019 Z23 Encounter for immunization Jacob Davis, [employer] 02/06/2019 Z12.4 Encounter for screening for malignant neoplasm TONY Lewis of cervix Plan of Treatment Future Appointment(s):08/29/2019 9:00 am - Lavon Clark MD at [facility] - [facility]08/14/2019 10:00 am - TONY Lewis at [facility] Internal Medicine - [facility]08/07/2019 - Lavon Buitheresa, MD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, unspecified, organ involvement unspecifiedNew Orders:Pulmonary Exercise Test, Ordered: 08/07/19Referral:[facility], Sleep Disord,Diag/ClinicFollow up:3- 4 weeks with TyfehgE61.3 Polymyalgia oomyjnxhtbJ64.899 Other terminal make up operator (current ) drug harhwxdY16.83 Fatigue Functional Status Description No Information Available Mental Status Description No Information Available Referrals Refer to Reason for Referral Status Appt Date [facility] Possible sleep apnea; ongoing fatigue and daytime Sent 00/ somnolence. Eval and treat, thanks. [address] [place] [address] [phone]
--- OUTSIDE RECORDS SUMMARY | 2019-08-30 07:37 | XMS REPORT | Continuity of Care Document ---
:1955 External Reference #:[id number] Author Name TONY Lewis (transmitted by agent of provider Peyton Hernandez) Address [address] [place] [id number] Care Team Providers Name Role Phone Randal Campbell III, MD - Internal Care Team Information [employer] [facility] Problems Active Problems Provider Date Chronic ischemic heart disease Brain Platt M.D., [facility] Onset: 2013 Essential hypertension Brain Platt M.D., [facility] Onset: 04/11/2014 Hyperlipidemia Brain Platt M.D., [facility] Onset: 04/11/2014 Polymyalgia rheumatica Jung Cannon M.D. Onset: 09/18/2014 Myalgia & Myositis Unspecified Jung Cannon M.D. Onset: 10/02/2014 Chronic pain syndrome Dale Craig M.D. Onset: 04/03/2015 Taking medication Dale Craig M.D. Onset: 04/03/2015 Diverticulitis of colon Dale Craig M.D. Onset: 04/03/2015 Coronary arteriosclerosis Brain Platt M.D., [facility] Onset: 04/29/2015 Benign essential hypertension Brain Platt M.D., [facility] Onset: 2014 Social History Type Date Description Comments Sex Unknown ETOH Use Currently consumes 12-15 drinks/week alcohol Recreational Drug Use Denies Drug Use Tobacco Use Start: Unknown Patient is a former End: Unknown smoker Smoking Status Reviewed: 08/14/19 Patient is a former smoker Exercise Type/Frequency Exercises sporadically walks occationally Allergies, Adverse Reactions, Alerts Description No Known Drug Allergies Medications Active Medications SIG Qnty Indications Ordering Date Provider Amoxicillin/Clavulanate take one tablet 14tabs J01.90 Jacob Davis, 08/14 Potassium every 12 hours MASH PROCESSING OPERATOR 875-125mg Tablets for 7 days Alendronate Sodium take one tablet 12tabs M81.0 Jacob Davis, 08/14/2019 70mg Tablets by mouth once a MASH PROCESSING OPERATOR week as directed Hydroxychloroquine take one tablet 180tabs M33.90 Lavon Clark, 2018 Sulfate by mouth twice MD 200mg Tablets a day Prednisone take 2 tablets 60tabs M33.90 Jacob Davis, 07/05/2019 5mg Tablets once daily as MASH PROCESSING OPERATOR needed Triamcinolone Acetonide Use on oral 5gm Jacob Davis, 02/12/2019 Dental Paste lesions after MASH PROCESSING OPERATOR 0.1% Paste meals and before bedtime. Bisoprolol 2 tab by mouth 360tabs I10 Jacob Davis, 05/18/2018 Fumarate/Hydrochlorothiaz everyday MASH PROCESSING OPERATOR manuel 5-6.25mg Tablets Shingrix 2 doses 6 month 2units Z23 Jacob Davis, 02/27/2018 50mcg Suspension Rec apart MASH PROCESSING OPERATOR Simvastatin 1 by mouth 90tabs Noa Trotter, 04/20/2016 20mg Tablets every day M.D. Losartan Potassium 1 by mouth 30tabs I10 Jacob Davis, 12/04/2012 100mg every day MASH PROCESSING OPERATOR Tablets Hydrocortisone Cream 2.5 Apply a thin Unknown % layer to face up to twice daily Tylenol Allergy prn Unknown Multi-Symptom 2-5-325mg Tablets Topiramate 1 tab by mouth 120tabs G43.009 Jacob Davis, 25mg Tablets every morning MASH PROCESSING OPERATOR and 2 tabs every night Zyrtec Allergy 1 by mouth Unknown 10mg Tablets every day Aspirin 1 by mouth Unknown 81mg Tablets every day History Medications Azathioprine 1 tb po qday 30tabs Jacob Davis, 07/10/2019 - 50mg MASH PROCESSING OPERATOR 08/14/2019 Tablets Medrol take as directed 21units M33.90 Jacob Davis, 06/25/2019 - 4mg TBPK until finished MASH PROCESSING OPERATOR 08/06/2019 as medrol dose pack Simvastatin 1 by mouth every 90tabs Zsofia Ryan, 04/03/2019 - 20mg day MASH PROCESSING OPERATOR 04/08/2019 Tablets Simvastatin 1 by mouth every 90tabs Zsofia Ryan, 04/03/2019 - 20mg day MASH PROCESSING OPERATOR 04/03/2019 Tablets Simvastatin 2 by mouth every 180tabs Zsofia Ryan, 04/03/2019 - 10mg day [facility] 04/03/2019 Tablets Medications Administered in Office Medication SIG Qnty Indications Ordering Provider Date Depomedrol 40MG Juan Ramon Bloom M.D. 08/06/2018 Injection Depomedrol 40MG Juan Ramon Bloom M.D. 08/06/2018 Injection Immunizations CPT Code Status Date Vaccine Lot # [id number] Given 08/22/2018 Tdap - Tetanus/Diptheria/Acellular Pertussis [id number] Given 09/07/2015 Influenza Virus Vaccine, Quadrivalent, Split, [id number] Preservative Free Vital Signs Date Vital Result Comment 08/14/2019 9:51am Height 66 inches 5'6" Weight 174.38 lb Heart Rate 65 /min BP Systolic 112 mmHg BP Diastolic 66 mmHg Body Temperature 98.6 F O2 % BldC Oximetry 97 % BMI (Body Mass Index) 28.1 kg/m2 08/07/2019 9:50am Height 66 inches 5'6" Weight 174.00 lb Heart Rate 66 /min BP Systolic 141 mmHg BP Diastolic 74 mmHg Body Temperature 97.8 F O2 % BldC Oximetry 99 % BMI (Body Mass Index) 28.1 kg/m2 Results Test Date Facility Test Result H/L Range Note Thiopurine [facility] Interpretation See Comment 1 Methyltransferase [address] [place] [address] [phone] 6-Methylmercaptopurine 3.38 nmol/mL/h 3.00-6.66 6Methylmercaptopurine Riboside 4.65 nmol/mL/h Abnormal 5.04-9.57 6-Methylthioguanine riboside 3.43 nmol/mL/h 2.70-5.84 Reviewed By See Comment 2 Urinalysis Profile 06/25/2019 [facility] Urine Color Straw [address] [place] [address] [phone] Urine Appearance Clear Urine Specific [place] 1.009 Low 1.010-1.030 Urine pH 6.0 Normal 5-9 Urine Urobilinogen Negative Negative Urine Ketones Negative Negative Urine Protein Negative Negative Urine Leukocytes Negative Negative Urine Blood Negative Negative Urine Nitrite Negative Negative Urine Bilirubin Negative Negative Urine Glucose Negative Negative CBC Auto 06/25/2019 [facility] White Blood 7.1 10^3/uL Normal 3.5-10.[address] [place] [address] [phone] Red Blood Count 4.19 10^6/uL Normal 3.70-4.87 [...] % Nucleated Red Blood Cells % 0.0 Laboratory test 06/25/2019 [facility] Erythrocyte Sed 37 mm/Hr High 0-[address] [place] [address] [phone] Irene-1 Antibody <0.2 U 3 Scleroderma AB 06/25/2019 [facility] Scleroderma Ab 0.2 U 4 (SCL70) [address] [place] [address] [phone] Comp Metabolic 06/25/2019 [facility] Sodium 135 Normal 135-[address] mmol/L 45 [place] [address] [phone] Potassium 3.9 mmol/L Normal 3.5-5.0 Chloride 99 [...] Egfr Non- 73.3 >60 Egfr 88.7 >60 5 Laboratory test 06/25/2019 [facility] C Reactive 13.29 mg/L High <8.[address] [place] [address] [phone] Creatine Kinase(CK) 66 U/L Normal 10-223 Laboratory test 06/25/2019 [facility] Nuclear AB <1:80 (Negative ) 6 finding (Ju) [place] [address] Igg [phone] Em Igg AB Reflex 06/25/2019 [facility] SS-A/Ro <0.[address] [place] [address] [phone] SS-B/La Antibody <0.2 U 8 Sm (Camp) IgG Antibody <0.2 U 9 REEL CART OPERATOR Antibody, IgG <0.2 U 10 Scl-70 (Scleroderma) Antibody 0.2 U 11 Irene-1 Antibody <0.2 U 12 Neutrophil Cytoplasmic 06/25/2019 [facility] C-Anca Negative [place] [address] [phone] P-Anca Negative Negative 13 Laboratory test 06/25/2019 [facility] Anti Double <12.[address] Stranded Dna IU/[place] [address] AB [phone] Protein 06/25/2019 [facility] Total 6.7 g/dL 6.3 - Electrophoresis [address] Protein(Pep) 7.9 [place] [address] [phone] Albumin 3.5 g/dL 3.4-4.7 Alpha-1 Globulin 0.3 g/dL 0.1-0.3 Alpha-2 Globulin 1.1 g/dL Abnormal 0.6-1.0 Beta Globulin 1.1 g/dL 0.7-1.2 Gamma Globulin 0.9 g/dL 0.6-1.6 Albumin/Globulin Ratio 1.06 Impression See Comment 15 Laboratory test 06/06/2019 [facility] Surgical SEE RESULT 16, [address] [place] [address] [phone] 1 *Normal* In this whole blood sample, the profile of activity of thiopurine methyltransferase using three different substrates was normal or essentially normal. ADDITIONAL INFORMATION Liquid Chromatography-Tandem Mass Spectrometry (LC-MS/MS) This test was developed and its performance characteristics determined by [facility] in a manner consistent with CLIA requirements. This test has not been cleared or approved by the U.S. Food and Drug Administration. 2 RESULT: Jonny Rodgers M.D., Ph.D. Test Performed by: [facility] - [address] [address] Power Plant Operations Manager: Migue Navarro M.D. Ph.D.; CLIA# [id number] 3 REFERENCE VALUE <1.0 (Negative) Test Performed by: [facility] - [facility] [address] [place] [address] 4 REFERENCE VALUE <1.0 (Negative) Test Performed by: [facility] [employer] [address] [place] [address] 5 Because ethnic data is not always readily [...] 15-29 5 Kidney failure <15 (or dialysis) 6 <1:80 (Negative) REFERENCE VALUE <1:80 (Negative) Test Performed by: [facility] [employer] [address] [place] [address] 7 REFERENCE VALUE <1.0 (Negative) 8 REFERENCE VALUE <1.0 (Negative) 9 REFERENCE VALUE <1.0 (Negative) 10 REFERENCE VALUE <1.0 (Negative) 11 REFERENCE VALUE <1.0 (Negative) 12 REFERENCE VALUE <1.0 (Negative) Test Performed by: [facility] [place] [address] 13 Negative for cANCA and pANCA patterns by immunofluorescence. ADDITIONAL INFORMATION This test was developed and its performance characteristics determined by [facility] in a manner consistent with CLIA requirements. This test has not been cleared or approved by the U.S. Food and Drug Administration. Test Performed by: [facility] [place] [address] 14 REFERENCE VALUE <30.0 (Negative) Test Performed by: [place] [address] 15 RESULT: No apparent monoclonal protein on serum electrophoresis. Test Performed by: [place] [address] 16 [id number]:Morphology: violaceous edematous plaques on the upper and lower eyelids extending onto the 17 SEE RESULT BELOW Name: NAYANA OCHOA : [address]: Venus Hanna MD Acct: [id number] Unit: [id number] AGE: 63 Location: [facility] Re06/06/19 SEX: F Status: REG REF SPEC: [id number] ROBERT: 06/06/19-[address]: Venus Hanna MD REQ: [id number] RECD: 06/06/19 STATUS: RICHARD OAKLEY DR: Jacob Davis SINGLE NEEDLE TUFTING MACHINE OPERATOR _ ORDERED: LEVEL 4, SPEC STAIN ORG, SPEC ST NON-ORG COMMENTS: [id number] FINAL DIAGNOSIS Skin, left superior cheek, biopsy: [...] CONTINUED ON NEXT PAGE DEPARTMENT OF PATHOLOGY, [facility] [employer] [place], [place] [address] Donn Connell M.D. Director [place] # [id number] RUN DATE: 06/07/19 [facility] LAB LIVE PAGE 2 Patient: NAYANA OCHOA Kassandra [id number] (Continued) MICROSCOPIC DESCRIPTION (Continued) sectioning show similar histologic features. A PAS stain, with appropriately reacting controls, is negative for fungal organisms and shows mild basement membrane thickening. An Alcian blue stain, with appropriately reacting controls, shows mildly increased intradermal mucin. Signed by and Reported on: Rebecca Lopez MD 06/07/19 1545 END OF REPORT DEPARTMENT OF PATHOLOGY, [facility] [employer] [place], [place] [address] Donn Connell M.D. Director [facility] # [id number] Procedures Date Code Description Status 10/19/2018 [id number] Bone Mineral Density Test Completed 10/19/2018 [id number] Mammogram Completed 06/21/2017 [id number] Colonoscopy Completed 10/02/2014 [id number] Bone Mineral Density Test Completed Medical Devices Description No Information Available Encounters Type Date Location Provider Dx Diagnosis Office Visit 07/05/2019 Rheumatology Marelyofia Ryan, M33.90 Dermatopolymyositi 10:00a Services Of [facility] MASH PROCESSING OPERATOR s, unsp, organ involvement unspecified R21 Rash and other nonspecific skin eruption M35.3 Polymyalgia rheumatica Z79.899 Other snf (current) drug therapy 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 Office 06/25/2019 Rheumatology Zsofia 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, Visit 11:30a [facility] Ryan, MASH PROCESSING OPERATOR unsp, organ involvement unspecified R21 Rash and other nonspecific skin eruption M35.3 Polymyalgia rheumatica 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 Assessments Date Code Description Provider 08/14/2019 J01.90 Acute sinusitis, unspecified Zsofia Ryan, MASH PROCESSING OPERATOR 08/14/2019 J30.9 Allergic rhinitis, unspecified Zsofia Ryan, MASH PROCESSING OPERATOR 08/14/2019 R53.83 Fatigue Zsofia Rayn, MASH PROCESSING OPERATOR 08/14/2019 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, unspecified, organ Zsofia Ryan, MASH PROCESSING OPERATOR involvement unspecified 08/14/2019 M81.0 Age-related osteoporosis without current Zsofia Ryan, MASH PROCESSING OPERATOR pathological fracture 08/07/2019 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, unspecified, organ Lavon Clark MD involvement unspecified 08/07/2019 M35.3 Polymyalgia rheumatica Lavon Clark MD 08/07/2019 Z79.899 Other snf (current) drug therapy Lavon Clark MD 08/07/2019 R53.83 Fatigue Lavon Clark MD 07/05/2019 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, unspecified, organ Zsofia Ryan, MASH PROCESSING OPERATOR involvement unspecified 07/05/2019 R21 Rash and other nonspecific skin eruption Jacob Davis, MASH PROCESSING OPERATOR 07/05/2019 M35.3 Polymyalgia rheumatica Jacob Cuevask, MASH PROCESSING OPERATOR 07/05/2019 Z79.899 Other acidizer (current) drug therapy Jacob Cuevask, MASH PROCESSING OPERATOR 07/05/2019 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 Jacob Davis , TONY 06/25/2019 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, unspecified, organ TONY Lewis involvement unspecified 06/25/2019 R21 Rash and other nonspecific skin eruption Jacob Cuevask, MASH PROCESSING OPERATOR 06/25/2019 M35.3 Polymyalgia rheumatica Jacob Ryan, MASH PROCESSING OPERATOR 06/25/2019 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 You may continue taking an antihistamine (Zyrtec) once your symptoms resolved. This may help decrease congestion and your risk for infections in the future. Use nasal saline to moisturize nasal passages. Antibiotics for sinusitis:Overuse of antibiotics have been causing a major increase in antibiotic resistance. Therefore, patients with sinus symptoms should consider taking an antibiotic only if symptoms (including discolored nasal discharge) persist beyond 7-10 days. ( [employer]:)Follow up:PE mid January or earlier if qpunheA85.9 Allergic rhinitis, unspecifiedComments:We need to treat your symptoms very aggressively to prevent bacterial infection. Our goal is to minimize nasal congestion/discharge and prevent inflammation.R53.83 RblkpimC92.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, unspecified, organ involvement unspecifiedComments:Please get labs for Dr. Clark fzsucH37.0 Age-related osteoporosis without current pathological fractureNew Medication:Alendronate Sodium 70 mg - take one tablet by mouth once a week as directedComments:Will check your Vit D level. In general you need Calcium 1200 mg and with Vit D 1000 IU/day. Recheck bone density in 2 years Bisphosphonates first line tx to reduce fracture risk in osteoporosis. They work by reducing bone loss, which results in a net gain of bone mineral density. Clinical trial data have shown benefits of taking bisphosphonates. Optimal treatment duration remains unknown but there has been concern over the long-term impact of bisphosphonate use on bone quality. At present tx for less than 5 year duration is recommended.It has been through that prolonged use of bisphosphonates may lead to a reduction in bone remodelling and the development of micro-fractures and increased bonefragility, resulting in atypical fractures. understanding. Bisphosphonate side effects: Osteonecrosis of the jaw (permanent damage of the bones of the jaw), mostly in people who recently had a dental procedure or had dental disease and in people who received high-dose IV bisphosphonates for cancer treatment. The risk at doses recommended for osteoporosis management is very low. Still, recommend good oral hygiene and regular dental care.Atypical femoral fractures.These occurred in a small percentof people using bisphosphonates snf for their osteoporosis. Functional Status Description No Information Available Mental Status Description No Information Available Referrals Refer to Reason for Referral Status Appt Date [facility] Possible sleep apnea; ongoing fatigue and daytime Sent 00/ somnolence. Eval and treat, thanks. [address] [place] [address] [phone]
[2019-08-30 07:55] LABS: ABS Basophils 0.1 10^3/ul (0-0.2); ABS Eosinophils 0.3 10^3/ul (0-0.6); ABS Lymphocytes 2.3 10^3/ul (1.0-4.8); ABS Monocytes 0.6 10^3/ul (0-0.8); Hematocrit 39 % (35-47); Hemoglobin 13.6 g/dL (12.0-16.0); Lymphocyte % 37.3 %; Mean Corpuscular HGB Conc 35 g/dL (31-36); Mean Corpuscular Hemoglobin 32 pg (27-31); Mean Corpuscular Volume 92 fL (80-97); Mean Platelet Volume 6.8 fL (7.4-10.4); Nucleated Red Blood Cells % 0.1; Platelet Count 263 10^3/uL (150-450); Red Blood Count 4.27 10^6 /uL (3.70-4.87); Red Cell Distribution Width 13 % (10-15); White Blood Count 6.3 10^3/uL (3.5-10.8)
[2019-08-30 08:06] LABS: INR 0.98 (0.82-1.09)
--- NOTE | 2019-08-30 08:06 | ED ---
HPI Chest Pain - HPI Summary HPI Summary: Patient is a 63 y/o F w/ Hx of LAD blockage and cardiac stent in 2000 who presents to [facility] with chief complaint of left-sided chest pain. Sx onset around 0645 08/30/19 when she was awake in her bed. Pain is described as crushing and burning sensation and is noted to have only lasted around a minute. Radiation of pain to neck and left arm is noted but she denies radiation of pain to her back. Patient states that this pain was similar to that she had during her 2001 episode. She states that she has had no medications and no food this morning. FMHx of CABG in mother, who at age 78. Patient consumes alcohol rarely and denies tobacco usage. Patient was followed by Dr. Platt but was dismissed by him a year ago after he left practice. She states that she was told that she "was doing fine" and reports no current diplomatic officer. She notes that her systolic BP has been running lower than her baseline for the past few weeks, stating that she is typically at 140- 150 systolic and that she has been at 110 systolic recently. Vitals in room are pulse 71, o2 100, BP 178/79. Patient notes that she is currently being tested to rule out dermatopolymyositis. Pt does not report any fever, chills, erythema of eyes, sore throat, SOB, cough, abdominal pain, N/V, dysuria, hematuria, myalgia, edema, rash, or dizziness. On triage, pain is rated 0/10, nothing is noted to aggravate/alleviate Sx. Home medications and allergies are reviewed. - History of Current Complaint Chief Complaint: EDChestPainROMI Time Seen by Provider: 08/30/19 07:50 Hx Obtained From: Patient Onset/Duration: Started Hours Ago, Resolved Timing: Intermittent, Lasting Minutes Current Severity: None Pain Intensity: 0 Pain Scale Used: 0-10 Numeric Chest Pain Location: Left Anterior Chest Pain Radiates: Yes Chest Pain Radiates To:: Arm, Neck Character: Burning, Crushing Aggravating Factor(s): Nothing Alleviating Factor(s): Nothing Associated Signs and Symptoms: Positive: Chest Pain, Other: - Pt does not report any fever, chills, erythema of eyes, sore throat, SOB, cough, abdominal pain, N/V, dysuria, hematuria, myalgia, edema, rash, or dizziness. Negative: Dizziness, Shortness of Breath, Swelling, Fever, Chills, Nausea, Cough, Productive Cough, Nonproductive Cough, Abdominal Pain, Calf Pain/Swelling, Vomiting, Edema - Allergy/Home Medications Allergies/Adverse Reactions: Allergies Allergy/AdvReac Type Severity Reaction Status Date / Time No Known Allergies Allergy Verified 08/02/16 07:44 PMH/Surg Hx/FS Hx/Imm Hx Endocrine/Hematology History: Denies: Hx Anticoagulant Therapy, Hx Diabetes Cardiovascular History: Reports: Hx Coronary Artery Disease, Hx Hypertension GI History: Reports: Hx Diverticulosis - w/ diverticulitis requiring admission Musculoskeletal History: Reports: Other Musculoskeletal History - polymyalgia rheumatica Denies: Hx Osteoporosis Sensory History: Reports: Hx Contacts or Glasses Opthamlomology History: Reports: Hx Contacts or Glasses - Cancer History Hx Chemotherapy: No Hx Radiation Therapy: No - Surgical History Surgery Procedure, Year, and Place: HEART ABLASION, STENT @ 2006,, appendectomy Infectious Disease History: No Infectious Disease History: Reports: Hx Clostridium Difficile Denies: Traveled Outside the [place] in Last 30 Days - Family History Known Family History: Positive: Cardiac Disease - Social History Alcohol Use: Daily Alcohol Amount: 1 wine/day Substance Use Type: Reports: None Smoking Status (MU): Never Smoked Tobacco Review of Systems Negative: Fever, Chills Negative: Erythema Negative: Sore Throat Positive: Chest Pain Negative: Shortness Of Breath, Cough Negative: Abdominal Pain, Vomiting, Nausea Negative: dysuria, hematuria Negative: Myalgia, Edema Negative: Rash Neurological: Other - negative - dizziness All Other Systems Reviewed And Are Negative: Yes Physical Exam - Summary Physical Exam Summary: Constitutional: Well-developed, Well-nourished, Alert. (-) Distressed Skin: Warm, Dry HENT: Normocephalic; Atraumatic Eyes: Conjunctiva normal Neck: Musculoskeletal ROM normal neck. (-) JVD, (-) Stridor, (-) Tracheal deviation Cardio: Rhythm regular, rate normal, Heart sounds normal; Intact distal pulses; The pedal pulses are 2+ and symmetric. Radial pulses are 2+ and symmetric. (-) Murmur Pulmonary/Chest wall: Effort normal. (-) Respiratory distress, (-) Wheezes, (-) Rales Abd: Soft, (-) tenderness, (-) Distension, (-) Guarding, (-) Rebound Musculoskeletal: (-) Edema Lymph: (-) Cervical adenopathy Neuro: Alert, Oriented x3 Psych: Mood and affect Normal Triage Information Reviewed: Yes Vital Signs On Initial Exam: Initial Vitals Temp Pulse Resp BP Pulse Ox 97.3 F 78 16 170/74 100 08/30/19 07:34 08/30/19 07:34 08/30/19 07:34 08/30/19 07:34 08/30/19 07:34 Vital Signs Reviewed: Yes Procedures - Sedation Patient Received Moderate/Deep Sedation with Procedure: No Diagnostics - Vital Signs Vital Signs Temp Pulse Resp BP Pulse Ox 08/30/19 07:34 97.3 F 78 16 170/74 100 - Laboratory Result Diagrams: 08/30/19 07:49 08/30/19 07:49 Lab Statement: Any lab studies that have been ordered have been reviewed, and results considered in the medical decision making process. - Radiology CXR Radiology Interpretation Completed By: Radiologist Summary of Radiographic Findings: IMPRESSION: NO ACUTE CARDIOPULMONARY PROCESS BY RADIOGRAPH. THIS REPORT WAS REVIEWED BY DR. FERRER. - EKG 0734 Cardiac Rate: NL - rate of 73 BPM EKG Rhythm: Sinus Rhythm Summary of EKG Findings: EKG showed NSR with rate of 73 BPM, no STEMI. This EKG was reviewed and interpreted by ED physician. Chest Pain Course/Dx - Course Course Of Treatment: Patient is a 63 y/o F w/ Hx of LAD blockage and cardiac stent in 2000 who presents to [facility] with chief complaint of left-sided chest pain. Sx onset around 0645 08/30/19 when she was awake in her bed. Pain is described as crushing and burning sensation and is noted to have only lasted around a minute. Radiation of pain to neck and left arm is noted but she denies radiation of pain to her back. Patient states that this pain was similar to that she had during her 2001 episode. Physical exam is unremarkable. EKG showed NSR with rate of 73 BPM, no STEMI. CXR IMPRESSION: NO ACUTE CARDIOPULMONARY PROCESS BY RADIOGRAPH. Bloodwork was WNL with exception of NCH 32, MPV 6.8, alk phos 105. First trop was negative. During ED course, patient received 324 mg PO. Patient's case was discussed with Dr. Gomez Dr. Gomez accepts for admission. Differential Dx of angina, [place], GERD, PNA. Diagnosis of unstable angina. - Chest Pain Differential Diagnosis/HQI/PQRI: Acute [place], Angina, Other: - PNA, GERD - Diagnoses Provider Diagnoses: Unstable angina - Provider Notifications Discussed Care Of Patient With: Torie Gomez Time Discussed With Above Provider: 09:11 Instructed by Provider To: Other - Patient's case was discussed with Dr. Gomez , Dr. Gomez accepts for admission. - Critical Care Time Critical Care Time: 30-74 min - 35 minutes CCT Discharge ED - Sign-Out/Discharge Documenting (check all that apply): Patient Departure - admit - Discharge Plan Condition: Stable Disposition: ADMITTED TO [facility] Referrals: Jacob Davis NP [Primary Care Provider] - Fly Valencia DO [Medical Doctor] - - Attestation Statements Document Initiated by Scribe: Yes Documenting Scribe: SARAH CORREA Provider For Whom Scribe is Documenting (Include Credential): AGNIESZKA FERRER MD Scribe Attestation: SARAH Go, scribed for AGNIESZKA FERRER MD on 08/30/19 at 0918. Status of Scribe Document: Ready
[2019-08-30 08:12] LABS: Albumin 4.2 g/dL (3.2-5.2); Albumin/Globulin Ratio 1.8 (1-3); BUN/Creatinine Ratio 15.8 (8-20); EGFR African American 92.7 (>60); EGFR Non-African American 76.6 (>60); Globulin 2.3 g/dL (2-4); Potassium 3.8 mmol/L (3.5-5.0); Total Bilirubin 0.4 mg/dL (0.2-1.0); Total Protein 6.5 g/dL (6.4-8.9)
[2019-08-30 08:14] LABS: Troponin I 0.01 ng/mL (<0.04)
[2019-08-30] MEDS ORDERED: Aspirin 81 mg CHEW TAB* 81 MG TAB.CHEW PO ONE (09:04)
[2019-08-30] MEDS ORDERED: Acetaminophen TAB* 325 MG PO PRN (09:52)
--- NOTE | 2019-08-30 13:04 | HP ---
CC: TONY Lewis * ADMISSION HISTORY AND PHYSICAL: DATE OF ADMISSION: 08/30/19 PRIMARY CARE PROVIDER: TONY Lewis. ATTENDING PHYSICIAN: Dr. Torie Spence.* (DICTATED BY MIKE KWON NP) CHIEF COMPLAINT: Left-sided chest pain. HISTORY OF PRESENT ILLNESS: Ms. Robledo is a very pleasant 63-year-old female patient with a history of coronary artery disease and hypertension that presents in the emergency department today with complaint of crushing, left- sided chest pressure at 6:45 this morning. The patient states that when she awoke this morning she experienced the chest pain, which felt "exactly like when I had my heart attack in 2000." The patient states that the quality of the chest pain was pressure and burning when she moved in bed to rollover and get her cellphone to call her . She said the pain did not change at all. It did radiate up to her jaw and left neck. She did not have any acute shortness of breath, diaphoresis, or nausea, but she has endorsed fatigue over the last couple of weeks and some exercise intolerance, but otherwise she has not had any further symptoms. She did become concern again because this symptom was very similar to which she had back in 2000 when she discovered that she did have a lesion in the LAD that was 95%. At that time, she did have a diagnostic cath at [facility], but was sent out to [facility] for stenting. The patient's is also at the bedside. He states that she has had multiple stress tests and 1 cardiac cath since then. They believe that there may be some additional coronary artery disease that was not progressive enough to be addressed on the last cardiac cath, which was several years ago, but they are unsure. The patient states she used to follow with Dr. Platt when he was still in the office but has not had a cardiology followup in about 2 years. Her troponin was negative in the ED. There were no acute ST segment changes on her EKG; however, given the constellation of symptoms, we were requested by the ED physician to admit the patient for observation for chest pain, rule out ACS. The patient also reports that she has had some low blood pressure at home. She does measure her blood pressure, and she has noted some systolic blood pressures in the low 110s and low 100s, which is very unusual for her. Her blood pressure has a tendency to be in the 140s to 150s. She was attributing her fatigue lately to her low blood pressures. PAST MEDICAL HISTORY: Coronary artery disease, hypertension, polymyalgia rheumatica, and hyperlipidemia. PAST SURGICAL HISTORY: Cardiac stent in 2000. SOCIAL HISTORY: The patient briefly smoked for 2 years in college and denies any alcohol use, any drug use. She is retired for the past 5 years. She lives at home with her Cam who is her healthcare proxy. He can be reached at . ALLERGIES: She has no known drug allergies. FAMILY HISTORY: Mother had coronary artery disease, at age 78. Father with diabetes mellitus, who in his 80s. No other family history reported. REVIEW OF SYSTEMS: Ten-point review of systems is otherwise negative except as noted in HPI above. PHYSICAL EXAMINATION GENERAL: Revealed a well-appearing female, well nourished, and in no acute distress. VITAL SIGNS: Blood pressure 154/79, heart rate 62, respiratory rate 16, O2 saturation 99% on room air with a temperature of 97.3. HEENT: The patient is atraumatic, normocephalic. She has PERRLA. She does have some erythema in the lower lid region and some erythema to the sclerae. Otherwise, there is no exudate or drainage from the eyes. Oral mucosa is moist. Tongue is midline. NECK: Supple, nontender. No JVD noted. No carotid bruits auscultated. Rate and rhythm are regular. LUNGS: Clear bilaterally to auscultation with no wheezing, rhonchi, or rales. ABDOMEN: Soft, nontender, nondistended. Positive bowel sounds in all 4 quadrants. No organomegaly noted. : Deferred. MUSCULOSKELETAL: There is no clubbing, no cyanosis, no pedal edema. She has + 2 distal pulses palpable. Full range of motion. Grossly motor and sensation are intact. NEUROLOGIC: Grossly intact with no focal deficits. PSYCHIATRIC: She is alert and oriented x3, cooperative and appropriate. LABORATORY DATA: WBCs 6.3, RBCs 4.27, hemoglobin 13.6, hematocrit 39, platelets 263. Sodium 137, potassium 3.8, chloride 103, BUN 12, creatinine 0.76. Glucose 94, calcium 9.0, AST 32, ALT 38, alk phos 105, troponin 0.01, albumin 4.2, globulin 2.3, albumin-globulin ratio 1.8. INR is 0.98. IMAGING: Chest x-ray shows no acute cardiopulmonary process. EKG from 7:30 this morning shows regular sinus rhythm, the rate is 73. She has 1 PAC, but otherwise no acute ST segment changes, no further ectopy noted on her 12- lead. IMPRESSION: This is a 63-year-old female patient with a history of coronary artery disease and stenting in 2000 that presents today with crushing left- sided chest pain that has resolved spontaneously. PLAN: The patient will be admitted to observation. DIAGNOSES: 1. Chest pain, rule out acute coronary syndrome. The patient's initial troponin was negative. She is pending for second troponin. If that is negative , she will have a stress echo this afternoon to rule her out. If the stress echo is negative, she can be discharged to home with outpatient followup. I do believe the patient would benefit from reestablishing a relationship with Cardiology as an outpatient and a referral should be made. 2. Hypertension. Her blood pressure, although she states has been low at home , is currently back at her baseline at this time. She should continue her home medications, which she had taken this morning prior to her arrival. These should be continued. 3. History of polymyalgia rheumatica. The patient states she has currently been following up with Dr. Clark from Rheumatology as she had been on prednisone for a long time, but their feeling is that it is not currently polymyalgia rheumatica and may be a different rheumatologic condition. Again, this is something she should follow up with as an outpatient. 4. Fluids, electrolytes, and nutrition: The patient will be n.p.o. for her test this afternoon. 5. Code status is full. 6. DVT prophylaxis: She is ambulatory and she has [id number] risk. 7. Disposition: Admitted to observation. The rest of the patient's course will be determined by further diagnostics, laboratories, and any other input from other providers as warranted during this admission. This plan of care has been discussed with Dr. Torie Spence, the attending on this admission, she is in agreement with the plan. TIME SPENT: 65 minutes on admission plan of care. MIKE KWON, WATER SERVICE SUPERVISOR [id number]/[facility] #: [id number] LESLEE
[2019-08-30] MEDS ORDERED: Topiramate TAB(*) 25 MG PO SCH ×2 (14:00→21:00)
[2019-08-30 19:12] VITALS: BP 174/89
--- NOTE | 2019-08-31 00:19 | DS ---
CC: TONY Lewis; Dr. Fly Valencia * DISCHARGE SUMMARY: DATE OF ADMISSION: 08/30/19 DATE OF DISCHARGE: 08/30/19 PRIMARY CARE PROVIDER: TONY Lewis ATTENDING DISCHARGE: Torie Spence MD * (DICTATED BY MIKE KWON NP) CARDIOLOGY: Dr. Fly Valencia. HOSPITAL COURSE: Please refer to admitting H and P from earlier today, but in short, Ms. Robledo is a 63-year-old female patient with a history of coronary artery disease and hypertension, who presented to the emergency department with a complaint of left-sided chest pain at 6:45 this morning. She was admitted to the hospital for observation for chest pain rule out ACS. She underwent a stress echo earlier today. Her stress echo was suboptimal because the patient cannot get up to full heart rate, she was only at 72% of expected rate secondary to fatigue; however, she did not show any acute ischemic changes on her EKG and no wall motion abnormalities during the test. It should also be noted that her troponins were negative. Troponin values that were recorded at 7 :45, 11 o'clock, and 1 o'clock today were 0.01, 0.02, 0.02. She had no further abnormalities in her blood work. Her EKG was also normal, it was regular sinus rhythm with no ectopy. She had 1 isolated [address] but no ST segment changes and no arrhythmias on telemetry for the duration of her stay today. The patient was readied for discharge this afternoon. I did have an extensive conversation with the patient regarding her diagnostics that were completed today. She is very worried because of her history of DE in 2000 and stenting to her LAD. Because of the type of chest pain she had this morning, she states felt very similar to the episode she had in 2001, which resulted in stenting and a 95% occlusion of her LAD. I did explain to the patient that if she had any further chest pain for any duration or any other symptoms of anginal equivalent, for example shortness of breath, diaphoresis, any exertional dyspnea, or additional symptomatology that she should return back to the emergency department for additional evaluation. I also instructed the patient that she should follow up with her primary care and reestablish her relationship with Cardiology as an outpatient. The patient was agreeable to this plan as was her and they were agreeable to discharge today. DISCHARGE DIAGNOSES: As follows: 1. Chest pain. 2. History of hypertension. 3. History of polymyalgia rheumatica. 4. History of hyperlipidemia. DISCHARGE MEDICATIONS: Include: 1. Losartan 100 mg p.o. daily. 2. Zyrtec 10 mg p.o. daily. 3. Bisoprolol/hydrochlorothiazide 5/6.25 mg 1 tablet p.o. daily. 4. Aspirin 81 mg daily. 5. Simvastatin 80 mg p.o. daily. 6. Topamax 25 mg p.o. 2 times a day. FOLLOWUPS: The patient was instructed to follow up with her primary care provider, Dr. Jacob Davis, in the next week and also Dr. Fly Valencia of Cardiology also on the next week. DIET: Heart-healthy diet as tolerated. ACTIVITY: Progress activity as tolerated. DISPOSITION: The patient was discharged to home in stable condition. The patient stated understanding of her discharge instructions, medications, and followups. TIME SPENT: 35 minutes on discharge planning. MIKE KWON, AMANDO [id number]/[facility] #: [id number] LESLEE
[2019-08-31] MEDS ORDERED: Hydrochlorothiazide TAB* 25 MG PO SCH (09:00)
[2019-08-31] MEDS ORDERED: Aspirin 81 mg CHEW TAB* 81 MG TAB.CHEW PO SCH (09:00)
[2019-08-31] MEDS ORDERED: BISOPROLOL PO SCH (09:00)
[2019-08-31] MEDS ORDERED: Losartan TAB* 25 MG PO SCH (09:00)
[2019-08-31] MEDS ORDERED: HYDROCHLOROTHIAZIDE PO SCH (09:00)
[2019-08-31] MEDS ORDERED: Bisoprolol TAB* 5 MG PO SCH (09:00)
[2019-08-31] MEDS ORDERED: Atorvastatin* 40 MG TAB PO SCH (09:00)
== END 2019-08-30 18:30 | disposition home or self-care (01) ==
LOC: ED 07:29 → MEDTELE 09:55
PROVIDERS: ADMIT Internal Medicine; ATTEND Internal Medicine
DX: I25.110 Atherosclerotic heart disease of native coronary artery with unstable angina pectoris (principal); I10 Essential (primary) hypertension; R07.9 Chest pain, unspecified; M35.3 Polymyalgia rheumatica; E78.5 Hyperlipidemia, unspecified; Z79.82 Long term (current) use of aspirin; Z79.899 Other long term (current) drug therapy
CPT/HCPCS: 36415; 71045; 80053; 84484; 85025; 85610; 93005; 93351; 99284; A9270-GY; G0378

== ENCOUNTER 2019-09-04 10:15 | Observation (INO) | payer BC ==
--- OUTSIDE RECORDS SUMMARY | 2019-09-04 10:31 | XMS REPORT | Continuity of Care Document ---
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 Onset: 09/18/2014 Myalgia & Myositis Unspecified Jung Cannon M.D. Onset: 10/02/2014 Chronic pain syndrome Dale Craig M.D. Onset: 04/03/2015 Taking medication Dale Craig M.D. Onset: 04/03/2015 Diverticulitis of colon Dale Craig M.D. Onset: 04/03/2015 Coronary arteriosclerosis Brain Platt M.D., [facility] Onset: 04/29/2015 Benign essential hypertension Brain Platt M.D., [facility] Onset: 2014 Social History Type Date Description [...] Medications SIG Qnty Indications Ordering Date Provider Fluticasone Propionate use 2 sprays in 16units Jacob Davis, 08/15/2019 each nostril GLASS MAKER 50mcg/Act Suspension one time a day Amoxicillin/Clavulanate take one tablet 14tabs J01.90 Jacob Davis, 08/14 Potassium every 12 hours GLASS MAKER 875-125mg Tablets for 7 days Alendronate Sodium take one tablet 12tabs M81.0 Jacob Daivs, 08/14/2019 70mg Tablets by mouth once a GLASS MAKER week as directed Hydroxychloroquine take one tablet 180tabs M33.90 Lavon Clark, 2018 Sulfate by mouth twice MD 200mg Tablets a day Prednisone take 2 tablets 60tabs M33.90 Jacob Davis, 07/05/2019 5mg Tablets once daily as GLASS MAKER needed Triamcinolone Acetonide Use on oral 5gm Jacob Davis, 02/12/2019 Dental Paste lesions after GLASS MAKER 0.1% Paste meals and before bedtime. Bisoprolol 2 tab by mouth 360tabs I10 Jacob Davis, 05/18/2018 Fumarate/Hydrochlorothiaz everyday GLASS MAKER manuel 5-6.25mg Tablets Shingrix 2 doses 6 month 2units Z23 Jacob Davis, 02/27/2018 50mcg Suspension Rec apart GLASS MAKER Simvastatin 1 by mouth 90tabs Noa Trotter, 04/20/2016 20mg Tablets every day M.D. Losartan Potassium 1 by mouth 30tabs I10 Jacob Davis, 12/04/2012 100mg every day GLASS MAKER Tablets Hydrocortisone Cream 2.5 Apply a thin Unknown % layer to face up to twice daily Tylenol Allergy prn Unknown Multi-Symptom 2-5-325mg Tablets Topiramate 1 tab by mouth 120tabs G43.009 Jacob Davis, 25mg Tablets every morning GLASS MAKER and 2 tabs every night Zyrtec Allergy 1 by mouth Unknown 10mg Tablets every day Aspirin 1 by mouth Unknown 81mg Tablets every day History Medications Azathioprine 1 tb po qday 30tabs Jacob Davis, 07/10/2019 - 50mg GLASS MAKER 08/14/2019 Tablets Medrol take as directed 21units M33.90 Jacob Davis, 06/25/2019 - 4mg TBPK until finished GLASS MAKER 08/06/2019 as medrol dose pack Simvastatin 1 by mouth every 90tabs Zsofia Ryan, 04/03/2019 - 20mg day GLASS MAKER 04/08/2019 Tablets Simvastatin 1 by mouth every 90tabs Zsofia Ryan, 04/03/2019 - 20mg day GLASS MAKER 04/03/2019 Tablets Simvastatin 2 by mouth every 180tabs Zsofia Ryan, 04/03/2019 - 10mg day GLASS MAKER 04/03/2019 Tablets Medications Administered in Office Medication SIG Qnty Indications Ordering Provider Date Depomedrol 40MG Juan Ramon Bloom M.D. 08/06/2018 Injection Depomedrol 40MG Juan Ramon Bloom M.D. 08/06/2018 Injection Immunizations CPT Code Status Date Vaccine Lot # [id number] Given 08/22/2018 Tdap - Tetanus/Diptheria/Acellular Pertussis [id number] Given 09/07/2015 Influenza Virus Vaccine, Quadrivalent, Split, [...] (Body Mass Index) 28.1 kg/m2 Results Test Acquired Date Facility Test Result H/L Range Note Comp Metabolic 08/30/2019 [facility] Sodium 137 mmol/L Normal 135-[address] [place] [address] [phone] Potassium 3.8 mmol/L Normal 3.5-5.0 Chloride 103 mmol/L Normal 101-111 Co2 Carbon Dioxide 27 mmol/L Normal 22-32 Anion Gap 7 mmol/L Normal 2-11 Glucose 94 mg/dL Normal 70-100 Blood Urea Nitrogen 12 mg/dL Normal 6-24 Creatinine 0.76 mg/dL Normal 0.51-0.95 BUN/Creatinine Ratio 15.8 Normal 8-20 Calcium 9.0 mg/dL Normal 8.6-10.3 Total Protein 6.5 g/dL Normal 6.4-8.9 Albumin 4.2 g/dL Normal 3.2-5.2 Globulin 2.3 g/dL Normal 2-4 Albumin/Globulin Ratio 1.8 Normal 1-3 Total Bilirubin 0.40 mg/dL Normal 0.2-1.0 Alkaline Phosphatase 105 U/L High 34-104 Alt 38 U/L Normal 7-52 Ast 32 U/L Normal 13-39 Egfr Non- 76.6 >60 Egfr 92.7 >60 1 Laboratory test 08/30/2019 [facility] Troponin-I 0.01 <0.04 [address] (TnI) ng/[place] [address] [phone] CBC Auto Diff 08/30/2019 [facility] White Blood 6.3 Normal 3.5 -10.[address] Count 10^3/[place] [address] [phone] Red Blood Count 4.27 10^6/uL Normal 3.70-4.87 Hemoglobin 13.6 g/dL Normal 12.0-16.0 Hematocrit 39 % Normal 35-47 Mean Corpuscular Volume 92 fL Normal 80-97 Mean Corpuscular Hemoglobin 32 pg High 27-31 Mean Corpuscular HGB Conc 35 g/dL Normal 31-36 Red Cell Distribution Width 13 % Normal 10-15 Platelet Count 263 10^3/uL Normal 150-450 Mean Platelet Volume 6.8 fL Low 7.4-10.4 Abs Neutrophils 3.0 10^3/uL Normal 1.5-7.7 Abs Lymphocytes 2.3 10^3/uL Normal 1.0-4.8 Abs Monocytes 0.6 10^3/uL Normal 0-0.8 Abs Eosinophils 0.3 10^3/uL Normal 0-0.6 Abs Basophils 0.1 10^3/uL Normal 0-0.2 Abs Nucleated RBC 0.0 10^3/uL Granulocyte % 48.1 % Lymphocyte % 37.3 % Monocyte % 8.8 % Eosinophil % 5.0 % Basophil % 0.8 % Nucleated Red Blood Cells % 0.1 Inr/Protime 08/30/2019 [facility] Inr 0.98 Normal 0.82-1.[address] [place] [address] [phone] Laboratory test 08/20/2019 [facility] Aldolase <pending> finding [address] [place] [address] [phone] Creatine Kinase(CK) <pending> Erythrocyte Sed Rate <pending> C Reactive Protein <pending> Laboratory test 08/20/2019 [facility] Ferritin <pending> [place] [address] [phone] Laboratory test 08/20/2019 [facility] Vitamin D Total <pending> finding [address] 25(Oh) [place] [address] [phone] TSH (Thyroid Stim Horm) <pending> Miscellaneous Test <pending> Urinalysis Profile 08/20/2019 [facility] Urine Color K[place] [place] [address] [phone] Urine Appearance Cloudy Urine Specific [place] 1.018 Normal 1.010-1.030 Urine pH 6.0 Normal 5-9 Urine Urobilinogen Negative Negative Urine Ketones Trace Abnormal Negative Urine Protein Negative Negative Urine Leukocytes 2+ Abnormal Negative Urine Blood Negative Negative Urine Nitrite Negative Negative Urine Bilirubin Negative Negative Urine Glucose Negative Negative Urine White Blood Cell 2+(11-20/hpf) Abnormal Absent Urine Red Blood Cell Trace(0-2/hpf) Absent Urine Bacteria Absent Absent Urine Squamous Epithelial Cell Present Abnormal Absent Urine Hyaline Casts Present Abnormal Absent Urine Culture And 08/20/2019 [facility] Urine Culture SEE RESULT [address] [place] [address] [phone] Laboratory test 08/20/2019 [facility] Creatine 36 U/L Normal 10-[address] Kinase(CK) 23 [place] [address] [phone] Iron & Iron 08/20/2019 [facility] Iron 134 g/dL Normal 50-[address] [place] [address] [phone] Unsaturated Iron Binding < 385 g/dL Total Iron Binding Capacity 400 g/dL Normal 250-450 Transferrin 286 mg/dL Normal 203-362 % Iron Saturation 34 % Normal 15-55 Laboratory test 08/20/2019 [facility] Ferritin 387.3 ng/mL High 11-[address] [place] [address] [phone] TSH (Thyroid Stim Horm) 1.37 mcIU/mL Normal 0.34-5.60 C Reactive Protein 29.78 mg/L High <8.01 Vitamin D Total 25(Oh) 38.0 ng/mL Normal 20-50 5 Erythrocyte Sed Rate 35 mm/Hr High 0-29 Quantiferon-TB 08/20/2019 [facility] QuantiferonTb Negative Negative 6 [address] Plus [address] [place] [address] [phone] TB1 Ag minus Nil Result 0.00 IU/mL TB2 Ag minus Nil Result 0.03 IU/mL Mitogen minus Nil Result 12.86 IU/mL Nil Result 0.06 IU/mL Thiopurine 07/05/2019 [facility] Interpretation See Comment 7 Methyltransferase [address] [place] [address] [phone] 6-Methylmercaptopurine 3.38 nmol/mL/h 3.00-6.66 6Methylmercaptopurine Riboside 4.65 nmol/mL/h Abnormal 5.04-9.57 6-Methylthioguanine riboside 3.43 nmol/mL/h 2.70-5.84 Reviewed By See Comment 8 Urinalysis Profile 06/25/2019 [facility] Urine Color [address] [place] [address] [phone] Urine Appearance Clear Urine Specific [place] 1.009 Low 1.010-1.030 Urine pH 6.0 Normal 5-9 Urine Urobilinogen Negative Negative Urine Ketones Negative Negative Urine Protein Negative Negative Urine Leukocytes Negative Negative Urine Blood Negative Negative Urine Nitrite Negative Negative Urine Bilirubin Negative Negative Urine Glucose Negative Negative CBC Auto 06/25/2019 [facility] White Blood 7.1 10^3/uL Normal 3.5-10.[address] [place] [address] [phone] Red Blood Count 4.19 10^6/uL Normal 3.70-4.87 [...] Blood Cells % 0.0 Laboratory test 06/25/2019 [facility] Erythrocyte Sed 37 mm/Hr High 0-[address] [place] [address] [phone] Irene-1 Antibody <0.2 U 9 Scleroderma AB 06/25/2019 [facility] Scleroderma Ab 0.2 U 10 (SCL70) [address] [place] [address] [phone] Comp Metabolic 06/25/2019 [facility] Sodium 135 Normal 135-[address] mmol/L 45 [place] [address] [phone] Potassium 3.9 mmol/L Normal 3.5-5.0 Chloride 99 [...] Non- 73.3 >60 Egfr 88.7 >60 11 Laboratory test 06/25/2019 [facility] C Reactive 13.29 mg/L High <8.[address] [place] [address] [phone] Creatine Kinase(CK) 66 U/L Normal 10-223 Laboratory test 06/25/2019 [facility] Nuclear AB <1:80 (Negative ) [address] (Ju) [place] [address] Igg [phone] Em Igg AB Reflex 06/25/2019 [facility] SS-A/Ro <0.2 U [address] [place] [address] [phone] SS-B/La Antibody <0.2 U 14 Sm (Camp) IgG Antibody <0.2 U 15 LAP GRINDER Antibody, IgG <0.2 U 16 Scl-70 (Scleroderma) Antibody 0.2 U 17 Irene-1 Antibody <0.2 U 18 Neutrophil Cytoplasmic 06/25/2019 [facility] C-Anca Negative Negative AB [address] [place] [address] [phone] P-Anca Negative Negative 19 Laboratory test 06/25/2019 [facility] Anti Double <12.3 [address] Stranded Dna IU/[place] [address] AB [phone] Protein 06/25/2019 [facility] Total 6.7 g/dL 6.3 - Electrophoresis [address] Protein(Pep) 7.9 [place] [address] [phone] Albumin 3.5 g/dL 3.4-4.7 Alpha-1 Globulin 0.3 g/dL 0.1-0.3 Alpha-2 Globulin 1.1 g/dL Abnormal 0.6-1.0 Beta Globulin 1.1 g/dL 0.7-1.2 Gamma Globulin 0.9 g/dL 0.6-1.6 Albumin/Globulin Ratio 1.06 Impression See Comment 21 Laboratory test 06/06/2019 [facility] Surgical SEE RESULT 22, [address] [place] [address] [phone] 1 Because ethnic data is not always readily [...] 15-29 5 Kidney failure <15 (or dialysis) 2 Troponin-I testing on Plasma Separator Tubes (PST) has a known false positive rate of 0.20-0.40%. All positive troponins reflex immediately to secondary confirmatory testing. Using the [employer] DxI 800 Access Immunoassay systems, the 99th percentile upper reference limit was demonstrated to be < 0.03 ng/mL. 3 Standard intensity warfarin therapeutic range: 2.0-3.0 High intensity warfarin therapeutic range: 2.5-3.5 4 SEE RESULT BELOW Name: DONNAYANA L : [address]: Lavon Clark MD Acct: [id number] Unit: [id number] AGE: 63 Location: LAB Re08/20/19 SEX: F Status: REG REF SPEC: [id number] ROBERT: 08/20/[address]: Lavon Clark MD REQ: [id number] RECD: 08/20/196910 STATUS: COMP _ SOURCE: URINE SPDESC: ORDERED: Urine Culture Procedure Result Reported Site Urine Culture Final 08/21/19- 1327 ML No Growth (<1,000 CFU/mL) * ML - Main Lab . END OF REPORT DEPARTMENT OF PATHOLOGY, [address] [place] [address] Donn Connell M.D. Director [facility] # [id number] 5 Total 25-Hydroxyvitamin D2 and D3 (25-OH-VitD) <10 ng/mL (severe deficiency) 10-19 ng/mL (mild to moderate deficiency) 20-50 ng/mL (optimum levels) 51-80 ng/mL (increased risk of hypercalciuria) >80 ng/mL (toxicity possible) 6 M. tuberculosis infection NOT likely 7 *Normal* In this whole blood sample, the profile of activity of thiopurine methyltransferase using three different substrates was normal or essentially normal. ADDITIONAL INFORMATION Liquid Chromatography-Tandem Mass Spectrometry (LC-MS/MS) This test was developed and its performance characteristics determined by [facility] in a manner consistent with CLIA requirements. This test has not been cleared or approved by the U.S. Food and Drug Administration. 8 RESULT: Jonny Rodgers M.D., Ph.D. Test Performed by: [facility] [place] [id number] Privacy Manager: Migue Navarro M.D. Ph.D.; CLIA# [id number] 9 REFERENCE VALUE <1.0 (Negative) Test Performed by: [facility] - [address] [address] 10 REFERENCE VALUE <1.0 (Negative) Test Performed by: [facility] [place] [address] 11 Because ethnic data is not always [...] 5 Kidney failure <15 (or dialysis) 12 <1:80 (Negative) REFERENCE VALUE <1:80 (Negative) Test Performed by: [facility] [employer] Vacc[employer] - [facility] [employer] [address] [place] [address] 13 REFERENCE VALUE <1.0 (Negative) 14 REFERENCE VALUE <1.0 (Negative) 15 REFERENCE VALUE <1.0 (Negative) 16 REFERENCE VALUE <1.0 (Negative) 17 REFERENCE VALUE <1.0 (Negative) 18 REFERENCE VALUE <1.0 (Negative) Test Performed by: [employer] [facility] [employer] [facility] - [facility] [employer] [address] [place] [address] 19 Negative for cANCA and pANCA patterns by immunofluorescence. ADDITIONAL INFORMATION This test was developed and its performance characteristics determined by [facility] in a manner consistent with CLIA requirements. This test has not been cleared or approved by the U.S. Food and Drug Administration. Test Performed by: [facility] - [address] [address] 20 REFERENCE VALUE <30.0 (Negative) Test Performed by: [address] [address] 21 RESULT: No apparent monoclonal protein on serum electrophoresis. 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 Director [facility] # [id number] RUN DATE: 06/07/19 [facility] LAB LIVE PAGE 2 Patient: OCHOANAYANA Kassandra [id number] (Continued) MICROSCOPIC DESCRIPTION (Continued) sectioning show similar histologic features. A PAS stain, with appropriately reacting controls, is negative for fungal organisms and shows mild basement membrane thickening. An Alcian blue stain, with appropriately reacting controls, shows mildly increased intradermal mucin. Signed by and Reported on: Rebecca Lopez MD 06/07/19 1545 END OF REPORT DEPARTMENT OF PATHOLOGY, [address] [place] [address] Donn Connell M.D. 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, unsp, organ involvement unspecified M81.0 Age-related osteoporosis w/o current pathological fracture Office 08/07/2019 Rheumatology Lavon 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, Visit 10:00a Services Of Sandra Clark MD unsp, organ involvement Ccmob unspecified M35.3 Polymyalgia rheumatica Z79.899 Other termite treater (current) drug therapy R53.83 Other fatigue R21 Rash and other nonspecific skin eruption Office 07/05/2019 Rheumatology Zsofia 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, Visit 10:00a Services Of TONY Rosenthal unsp, organ involvement unspecified R21 Rash and other nonspecific skin eruption M35.3 Polymyalgia rheumatica Z79.899 Other termite treater (current) drug therapy Z79.52 terminal gauger supervisor (current) use of systemic steroids Office 06/25/2019 Rheumatology Zsofia 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, Visit 11:30a Services Of TONY Rosenthal unsp, organ involvement unspecified R21 Rash and other nonspecific skin eruption M35.3 Polymyalgia rheumatica 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 Assessments Date Code Description Provider 08/14/2019 J01.90 Acute sinusitis, unspecified Zsofia Ryan, GLASS MAKER 08/14/2019 J30.9 Allergic rhinitis, unspecified Zsofia Ryan, GLASS MAKER 08/14/2019 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, unspecified, organ Zsofia Ryan, GLASS MAKER involvement unspecified 08/14/2019 M81.0 Age-related osteoporosis without current Zsofia Ryan, GLASS MAKER pathological fracture 08/07/2019 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, unspecified, organ Lavon Clark MD involvement unspecified 08/07/2019 M35.3 Polymyalgia rheumatica Lavon Clark MD 08/07/2019 Z79.899 Other alf (current) drug therapy Lavon Clark MD 08/07/2019 R53.83 Fatigue Lavon Clark MD 08/07/2019 R21 Rash and other nonspecific skin eruption Lavon Clark MD 07/05/2019 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, unspecified, organ Zsofia Ryan, GLASS MAKER involvement unspecified 07/05/2019 R21 Rash and other nonspecific skin eruption Zsofia Ryan, GLASS MAKER 07/05/2019 M35.3 Polymyalgia rheumatica Zsofia Ryan, GLASS MAKER 07/05/2019 Z79.899 Other alf (current) drug therapy Zsofia Ryan, GLASS MAKER 07/05/2019 Z79.52 FPC (current) use of systemic steroids Zsofia Ryan , GLASS MAKER 06/25/2019 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, unspecified, organ TONY Lewis involvement unspecified 06/25/2019 R21 Rash and other nonspecific skin eruption TONY Lewis 06/25/2019 M35.3 Polymyalgia rheumatica Jacob Davis, TONY 06/25/2019 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 ( [employer]:)Follow up:PE mid January or earlier if [id number] Allergic rhinitis, unspecifiedComments:We need to treat your symptoms very aggressively to prevent bacterial infection. Our goal is to minimize nasal congestion/discharge and prevent inflammation.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, unspecified, organ involvement unspecifiedComments:Please get labs for Dr. Clark yulrzG28.0 Age-related osteoporosis without current pathological fractureNew Medication:Alendronate [...] in a small percentof people using bisphosphonates alf for their osteoporosis. Functional Status Description No Information Available Mental Status Description No Information Available Referrals Refer to Reason for Referral Status Appt Date [facility] Possible sleep apnea; ongoing fatigue and daytime Sent 00/ somnolence. Eval and treat, thanks. [address] [place] [address] [phone]
--- OUTSIDE RECORDS SUMMARY | 2019-09-04 10:31 | XMS REPORT | Continuity of Care Document ---
:1955 External Reference #:[id number] Author Name Yo Betancourt M.D. (transmitted by agent of provider Tiffani Amezcua ) Address [address] [address] Care Team Providers Name Role Phone Jacob Davis PLASTERING CONTRACTOR - Nurse Care Team Information Phytopathology Teacher [phone] Practitioner Problems Active Problems Provider Date Chronic ischemic heart disease Brain Platt M.D., [facility] Onset: 2013 Essential hypertension Brain Platt M.D., [facility] Onset: 04/11/2014 Hyperlipidemia Brain Platt M.D., [facility] Onset: 04/11/2014 Polymyalgia rheumatica Jung Cannon M.D. Onset: 09/18/2014 Myalgia & Myositis Unspecified Jung Cannon M.D. Onset: 10/02/2014 Chronic pain syndrome Dale Craig M.D. Onset: 04/03/2015 Taking medication Dale Craig M.D. Onset: 04/03/2015 Diverticulitis of colon Dale Craig M.D. Onset: 04/03/2015 Coronary arteriosclerosis Brain Platt M.D., [facility] Onset: 04/29/2015 Benign essential hypertension Brain Platt M.D., [facility] Onset: 2014 Social History Type Date Description Comments Sex Unknown ETOH Use Consumes 2 glasses of wine per day Recreational Drug Use Denies Drug Use Tobacco Use Start: Unknown End: Patient is a former Socially x2 years Unknown smoker in 1970 Smoking Status Reviewed: 09/03/19 Patient is a former Socially x2 years smoker in 1970s Exercise Type/Frequency Does not exercise Allergies, Adverse Reactions, Alerts Description No Known Drug Allergies Medications Active Medications SIG Qnty Indications Ordering Date Provider Amlodipine Besylate 1 by mouth 30tabs I20.8 Yo DuarteDaisy 09/03/2019 2.5mg every day Nacho Betancourt Tablets Losartan Potassium 1 by mouth 60tabs I10 Yo FDaisy 09/03/2019 25mg Tablets every day Nacho Betancourt Nitroglycerin 1 sl q5 mins x3 25tabs I20.8 Yo FDaisy 09/03/2019 0.4mg Tablets Sub as needed for Nacho Betancourt chest pain Fluticasone Propionate use 2 sprays [facility]2019 each nostril PLASTERING CONTRACTOR 50mcg/Act Suspension one time a day Alendronate Sodium take one tablet 12tabs M81.0 [facility] Ryan, 08/14/2019 70mg Tablets by mouth once a PLASTERING CONTRACTOR week as directed Hydroxychloroquine take one tablet 180tabs M33.90 Lavon Clark, 2018 Sulfate by mouth twice MD 200mg Tablets a day Prednisone take 2 tablets 60tabs M33.90 [facility], 07/05/2019 5mg Tablets once daily as PLASTERING CONTRACTOR needed Triamcinolone Acetonide Use on oral 5gm [facility] Ryan, 02/12/2019 Dental Paste lesions after PLASTERING CONTRACTOR 0.1% Paste meals and before bedtime as needed Bisoprolol 2 tab by mouth 360tabs I10 [facility] Ryan, 05/18/2018 Fumarate/Hydrochlorothiaz everyday PLASTERING CONTRACTOR manuel 5-6.25mg Tablets Shingrix 2 doses 6 month 2units Z23 [facility], 02/27/2018 50mcg Suspension Rec apart Received PLASTERING CONTRACTOR 1st dose 09/02/19 Simvastatin 1 by mouth 90tabs Noa Trotter, 04/20/2016 20mg Tablets every day M.D. Hydrocortisone Cream 2.5 Apply a thin Unknown % layer to face up to twice daily as needed Tylenol Allergy 1 tablet by Unknown Multi-Symptom mouth daily 2-5-325mg Tablets Topiramate 1 tab by mouth 120tabs G43.009 [facility] Ryan, 25mg Tablets every morning PLASTERING CONTRACTOR and 2 tabs every night Zyrtec Allergy 1 by mouth Unknown 10mg Tablets every day Aspirin 1 by mouth Unknown 81mg Tablets every day History Medications Amoxicillin/Clavulanate take one 14tabs J01.90 Zsofi 08/14/2019 - Potassium tablet every [facility], [facility] 09/02/2019 875-125mg Tablets 12 hours for 7 days Azathioprine 1 tb po qday 30tabs Zsofia 07/10/2019 - 50mg Tablets [facility] 08/14/2019 Medrol take as 21units M33.90 Zsofia 06/25/2019 - 4mg TBPK directed until [facility] 08/06/2019 finished as medrol dose pack Simvastatin 1 by mouth 90tabs Zsofia 04/03/2019 - 20mg Tablets every day [facility] 04/08/2019 Simvastatin 1 by mouth 90tabs Zsofia 04/03/2019 - 20mg Tablets every day [facility] 04/03/2019 Simvastatin 2 by mouth 180tabs Zsofia 04/03/2019 - 10mg Tablets every day [facility] 04/03/2019 Medications Administered in Office Medication SIG Qnty Indications Ordering Provider Date [facility] pharmacy administered Unknown 09/02/2019 Injection Depomedrol 40MG Juan Ramon Bloom M.D. 08/06/2018 Injection Depomedrol 40MG Juan Ramon Bloom M.D. 08/06/2018 Injection Immunizations CPT Code Status Date Vaccine Lot # [id number] Given 08/22/2018 Tdap - Tetanus/Diptheria/Acellular Pertussis [id number] Given 09/07/2015 Influenza Virus Vaccine, Quadrivalent, Split, [id number] Preservative Free Vital Signs Date Vital Result Comment 09/03/2019 3:27pm Height 66 inches 5'6" Weight 171.75 lb with shoes Heart Rate 64 /min radial,regular BP Systolic Sitting 140 mmHg Ra, reg cuff BP Diastolic Sitting 76 mmHg Ra, reg cuff BP Systolic Standing 142 mmHg Ra, reg cuff BP Diastolic Standing 82 mmHg Ra, reg cuff BMI (Body Mass Index) 27.7 kg/m2 Ejection Fraction 56% echo 11/08/10 08/14/2019 9:51am Height 66 inches 5'6" Weight 174.38 lb Heart Rate 65 /min BP Systolic 112 mmHg BP Diastolic 66 mmHg Body Temperature 98.6 F O2 % BldC Oximetry 97 % BMI (Body Mass Index) 28.1 kg/m2 Results Test Acquired Date Facility Test Result H/L Range Note Inr/Protime 08/30/2019 [facility] Inr 0.98 Normal 0.82-1.[address] [place] [address] [phone] Comp Metabolic 08/30/2019 [facility] Sodium 137 mmol/L Normal 135-[address] [place] [address] [phone] Potassium 3.8 mmol/L Normal 3.5-5.0 Chloride 103 [...] Egfr Non- 76.6 >60 Egfr 92.7 >60 2 CBC Auto 08/30/2019 [facility] White Blood 6.3 10^3/uL Normal 3.5-10.[address] [place] [address] [phone] Red Blood Count 4.27 10^6/uL Normal 3.70-4.87 [...] % Nucleated Red Blood Cells % 0.1 Laboratory test 08/30/2019 [facility] Troponin-I (TnI) 0.01 ng/ mL <0.04 3 finding [address] [place] [address] [phone] Quantiferon-TB 08/20/2019 [facility] QuantiferonTb Negative Negative 4 Gold Plus [address] [facility] [place] [address] [phone] TB1 Ag minus Nil Result 0.00 IU/mL TB2 Ag minus Nil Result 0.03 IU/mL Mitogen minus Nil Result 12.86 IU/mL Nil Result 0.06 IU/mL Laboratory test 08/20/2019 [facility] Ferritin 387.3 ng/mL High 11-307 finding [address] [place] [address] [phone] TSH (Thyroid Stim Horm) 1.37 mcIU/mL Normal 0.34-5.60 C Reactive Protein 29.78 mg/L High <8.01 Vitamin D Total 25(Oh) 38.0 ng/mL Normal 20-50 5 Erythrocyte Sed Rate 35 mm/Hr High 0-29 Iron & Iron Binding 08/20/2019 [facility] Iron 134 g/dL Normal 50-212 [address]acity [address] [place] [address] [phone] Unsaturated Iron Binding < 385 g/dL Total Iron Binding Capacity 400 g/dL Normal 250-450 Transferrin 286 mg/dL Normal 203-362 % Iron Saturation 34 % Normal 15-55 Laboratory test 08/20/2019 [facility] Creatine 36 U/L Normal 10-[address] Kinase(CK) [place], [place] [address] [phone] Urine Culture And 08/20/2019 [facility] Urine Culture SEE [address] [place] [address] BELOW [phone] Laboratory test 08/20/2019 [facility] Aldolase <pending> finding [address] [place] [address] [phone] Creatine Kinase(CK) <pending> Erythrocyte Sed Rate <pending> C Reactive Protein <pending> Laboratory test finding 08/20/2019 [facility] Ferritin <pending > [address] [place] [address] [phone] Urinalysis Profile 08/20/2019 [facility] Urine Color Kajal [address] [place] [address] [phone] Urine Appearance Cloudy Urine Specific [place] 1.018 Normal 1.010-1.030 Urine pH 6.0 Normal [...] Absent Urine Hyaline Casts Present Abnormal Absent Laboratory test 08/20/2019 [facility] Vitamin D Total <pending> finding 101 25(Oh) [place] [address] [phone] TSH (Thyroid Stim Horm) <pending> Miscellaneous Test <pending> Thiopurine 07/05/2019 [facility] Interpretation See Comment [address] [place] [address] [phone] 6-Methylmercaptopurine 3.38 nmol/mL/h 3.00-6.66 6Methylmercaptopurine Riboside 4.65 nmol/mL/h Abnormal 5.04-9.57 6-Methylthioguanine riboside 3.43 nmol/mL/h 2.70-5.84 Reviewed By See Comment 8 CBC Auto 06/25/2019 [facility] White Blood 7.1 10^3/uL Normal 3.5-10.[address] [place] [address] [phone] Red Blood Count 4.19 10^6/uL Normal 3.70-4.87 [...] Blood Cells % 0.0 Laboratory test 06/25/2019 [facility] Erythrocyte Sed 37 mm/Hr High 0-[address] [place] [address] [phone] Irene-1 Antibody <0.2 U 9 Scleroderma AB 06/25/2019 [facility] Scleroderma Ab 0.2 U 10 (SCL70) [address] [place] [address] [phone] Comp Metabolic 06/25/2019 [facility] Sodium 135 Normal 135-[address] mmol/L 45 [place] [address] [phone] Potassium 3.9 mmol/L Normal 3.5-5.0 Chloride 99 [...] Egfr 88.7 >60 11 Laboratory test 06/25/2019 [facility] C Reactive 13.29 mg/L High <8.[address] [place] [address] [phone] Creatine Kinase(CK) 66 U/L Normal 10-223 Laboratory test 06/25/2019 [facility] Nuclear AB <1:80 (Negative ) [address] (Ju) [place] [address] Igg [phone] Em Igg AB Reflex 06/25/2019 [facility] SS-A/Ro <0.[address] [place] [address] [phone] SS-B/La Antibody <0.2 U 14 Sm (Camp) IgG Antibody <0.2 U 15 DIRECTOR OF THE [employer] [facility] Antibody, IgG <0.2 U 16 Scl-70 (Scleroderma) Antibody 0.2 U 17 Irene-1 Antibody <0.2 U 18 Neutrophil Cytoplasmic 06/25/2019 [facility] C-Anca Negative [place] [address] [phone] P-Anca Negative Negative 19 Laboratory test 06/25/2019 [facility] Anti Double <12.[address] Stranded Dna IU/[place] [address] AB [phone] Protein 06/25/2019 [facility] Total 6.7 g/dL 6.3 - Electrophoresis [address] Protein(Pep) 7.9 [place] [address] [phone] Albumin 3.5 g/dL 3.4-4.7 Alpha-1 Globulin 0.3 g/dL 0.1-0.3 Alpha-2 Globulin 1.1 g/dL Abnormal 0.6-1.0 Beta Globulin 1.1 g/dL 0.7-1.2 Gamma Globulin 0.9 g/dL 0.6-1.6 Albumin/Globulin Ratio 1.06 Impression See Comment 21 Urinalysis Profile 06/25/2019 [facility] Urine Color Straw [address] [place] [address] [phone] Urine Appearance Clear Urine Specific [place] 1.009 Low 1.010-1.030 Urine pH 6.0 Normal 5-9 Urine Urobilinogen Negative Negative Urine Ketones Negative Negative Urine Protein Negative Negative Urine Leukocytes Negative Negative Urine Blood Negative Negative Urine Nitrite Negative Negative Urine Bilirubin Negative Negative Urine Glucose Negative Negative Laboratory test 06/06/2019 [facility] Surgical SEE RESULT 22, [address] [place] [address] [phone] 1 Standard intensity warfarin therapeutic range: 2.0-3.0 High intensity warfarin therapeutic range: 2.5-3.5 2 Because ethnic data is not always readily [...] 15-29 5 Kidney failure <15 (or dialysis) 3 Troponin-I testing on Plasma Separator Tubes (PST) has a known false positive rate of 0.20-0.40%. All positive troponins reflex immediately to secondary confirmatory testing. Using the ZOZI DxI 800 Access Immunoassay systems, the 99th percentile upper reference limit was demonstrated to be < 0.03 ng/mL. 4 M. tuberculosis infection NOT likely 5 Total 25-Hydroxyvitamin D2 and D3 (25-OH-VitD) <10 ng/mL (severe deficiency) 10-19 ng/mL (mild to moderate deficiency) 20-50 ng/mL (optimum levels) 51-80 ng/mL (increased risk of hypercalciuria) >80 ng/mL (toxicity possible) 6 SEE RESULT BELOW Name: NAYANA OCHOA : [address]: Lavon Clark MD Acct: [id number] Unit: [id number] AGE: 63 Location: LAB Re08/20/19 SEX: F Status: REG REF SPEC: [id number] ROBERT: 08/20/[address] [facility] [address]: Lavon Clark MD REQ: [id number] RECD: 08/20/19 STATUS: COMP _ SOURCE: URINE SPDESC: ORDERED: Urine Culture Procedure Result Reported Site Urine Culture Final 08/21/19- 1327 ML No Growth (<1,000 CFU/mL) * - [facility] . END OF REPORT DEPARTMENT OF PATHOLOGY, [address] [place] [address] Donn Connell M.D. Director [facility] # [id number] 7 *Normal* In this whole blood sample, the profile of activity of thiopurine methyltransferase using three different substrates was normal or essentially normal. ADDITIONAL INFORMATION Liquid Chromatography-Tandem Mass Spectrometry (LC-MS/MS) This test was developed and its performance characteristics determined by [facility] in a manner consistent with CLIA requirements. This test has not been cleared or approved by the U.S. Food and Drug Administration. 8 RESULT: Jonny Rodgers M.D., Ph.D. Test Performed by: [facility] [place] [id number] Principal Automation Engineer: Migue Navarro M.D. Ph.D.; CLIA# [id number] 9 REFERENCE VALUE <1.0 (Negative) Test Performed by: [facility] [place] [address] 10 REFERENCE VALUE <1.0 (Negative) Test Performed by: [facility] [place] [address] 11 Because ethnic data is not always [...] REFERENCE VALUE <1:80 (Negative) Test Performed by: [facility] [place] [employer] Addiction Medicine (ABAM) [address] [employer] (ABAM) [place] [address] 13 REFERENCE VALUE <1.0 (Negative) 14 REFERENCE VALUE <1.0 (Negative) 15 REFERENCE VALUE <1.0 (Negative) 16 REFERENCE VALUE <1.0 (Negative) 17 REFERENCE VALUE <1.0 (Negative) 18 REFERENCE VALUE <1.0 (Negative) Test Performed by: [facility] [place] [address] 19 Negative for cANCA and pANCA patterns by immunofluorescence. ADDITIONAL INFORMATION This test was developed and its performance characteristics determined by [facility] in a manner consistent with CLIA requirements. This test has not been cleared or approved by the U.S. Food and Drug Administration. Test Performed by: [facility] [place] [address] 20 REFERENCE VALUE <30.0 (Negative) Test Performed by: [facility] [place] [address] 21 RESULT: No apparent monoclonal protein on serum electrophoresis. Test Performed by: [place] [address] 22 4382-A:Morphology: violaceous edematous plaques on the upper and lower eyelids extending onto the 23 SEE RESULT BELOW Name: NAYANA OCHOA : [address]: Venus Hanna MD Acct: [id number] Unit: [id number] AGE: 63 Location: [facility] Re/08/19 SEX: F Status: REG REF SPEC: [id number] ROBERT: 06/06/[address] [facility] [address]: Venus Hanna MD REQ: [id number] RECD: 06/06/19 STATUS: RICHARD OAKLEY DR: Jacob Davis HARD TILE SETTER APPRENTICE _ ORDERED: LEVEL 4, SPEC STAIN ORG, SPEC ST NON-ORG COMMENTS: [id number] FINAL DIAGNOSIS Skin, left superior cheek, biopsy: [...] CONTINUED ON NEXT PAGE DEPARTMENT OF PATHOLOGY, [address] [place] [address] Donn Connell M.D. Director [facility] # [id number] RUN DATE: 06/07/19 [facility] LAB LIVE PAGE 2 Patient: DONNAYANA L [id number] (Continued) MICROSCOPIC DESCRIPTION (Continued) sectioning show similar histologic features. A PAS stain, with appropriately reacting controls, is negative for fungal organisms and shows mild basement membrane thickening. An Alcian blue stain, with appropriately reacting controls, shows mildly increased intradermal mucin. Signed by and Reported on: Rebecca Lopez MD 06/07/19 1545 END OF REPORT DEPARTMENT OF PATHOLOGY, [address] [place] [address] Donn Connell M.D. Director [facility] # [id number] Procedures Date Code Description Status 09/03/2019 61632 EKG Tracing & Interpretation Completed 08/29/2019 94742 Diffusing Capacity Completed 08/29/2019 60658 Plethysmography Determination Lung Volumes & Per Completed Airway Resist 08/29/2019 79368 Spirometry Incl Graphic Record Completed 10/19/2018 [id number] Bone Mineral Density Test Completed 10/19/2018 88381282 Mammogram Completed 06/21/2017 07348279 Colonoscopy Completed 10/02/2014 007602335 Bone Mineral Density Test Completed Medical Devices Description No Information Available Encounters Type Date Location Provider Dx Diagnosis Office Visit 08/14/2019 [facility] Internal Jacob Davis, J01.90 Acute sinusitis , 10:00a Medicine - [facility] PLASTERING CONTRACTOR unspecified J30.9 Allergic rhinitis, unspecified 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, unsp, organ involvement unspecified M81.0 Age-related osteoporosis w/o current pathological fracture Office 08/07/2019 Rheumatology Lavon 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, Visit 10:00a [facility] Trino Clark MD unsp, organ involvement C[facility] unspecified M35.3 Polymyalgia rheumatica Z79.899 Other nursing home (current) drug therapy R53.83 Other fatigue R21 Rash and other nonspecific skin eruption Office 07/05/2019 Rheumatology Jacob 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, Visit 10:00a Services Of [facility] unsp, organ involvement unspecified R21 Rash and other nonspecific skin eruption M35.3 Polymyalgia rheumatica Z79.899 Other nursing home (current) drug therapy Z79.52 [facility] (current) use of systemic steroids Office 06/25/2019 Rheumatology Marelyofijuan carlos 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 unspecified 09/03/2019 E78.5 Hyperlipidemia, unspecified Yo Betancourt M.D. 09/03/2019 I10 Essential (primary) hypertension Neil ClementsD. 09/03/2019 I20.8 Angina pectoris Yo Betancourt M.D. 08/29/2019 M33.10 Other dermatomyositis, organ involvement Emmy Vasquez MD unspecified 08/14/2019 J01.90 Acute sinusitis, unspecified Zsofia Ryan, PLASTERING CONTRACTOR 08/14/2019 J30.9 Allergic rhinitis, unspecified Zsofia Ryan, PLASTERING CONTRACTOR 08/14/2019 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, unspecified, organ Zsofia Ryan, PLASTERING CONTRACTOR involvement unspecified 08/14/2019 M81.0 Age-related osteoporosis without current Zsofia Ryan, PLASTERING CONTRACTOR pathological fracture 08/07/2019 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, unspecified, organ Lavon Clark MD involvement unspecified 08/07/2019 M35.3 Polymyalgia rheumatica Lavon Clark MD 08/07/2019 Z79.899 Other termite technician (current) drug therapy Lavon Clark MD 08/07/2019 R53.83 Fatigue Lavon Clark MD 08/07/2019 R21 Rash and other nonspecific skin eruption Lavon Clark MD 07/05/2019 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, unspecified, organ Zsofia Ryan, PLASTERING CONTRACTOR involvement unspecified 07/05/2019 R21 Rash and other nonspecific skin eruption Zsofia Ryan, PLASTERING CONTRACTOR 07/05/2019 M35.3 Polymyalgia rheumatica Zsofia Ryan, PLASTERING CONTRACTOR 07/05/2019 Z79.899 Other nursing home (current) drug therapy Zsofia Ryan, PLASTERING CONTRACTOR 07/05/2019 Z79.52 [facility] (current) use of systemic Zsofia Ryan, PLASTERING CONTRACTOR steroids 06/25/2019 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, unspecified, organ Zsofia Ryan, PLASTERING CONTRACTOR involvement unspecified 06/25/2019 R21 Rash and other nonspecific skin eruption Zsofia Ryan, PLASTERING CONTRACTOR 06/25/2019 M35.3 Polymyalgia rheumatica Zsofia Ryan, PLASTERING CONTRACTOR 06/25/2019 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 at [facility]/25/2019 8:30 am - Julita Nam NDaisyPDaisy at [facility]2018 8:30 am - Julita Nam N.Yevgeniy at [facility]09/11/2019 8:00 am - Lavon Clark MD at [facility]ology [facility] - [facility]03/04/2020 10:20 am - TONY Lewis at [facility] Internal Medicine - [facility]09/03/2019 - Yo Betancourt M.D.M33.10 Other dermatomyositis, organ involvement [id number] Hyperlipidemia, [id number] Essential (primary) hypertensionNew Medication: Losartan Potassium 25 mg - 1 by mouth every dayI20.8 Angina pectorisNew Medication:Amlodipine Besylate 2.5 mg - 1 by mouth every dayNitroglycerin 0.4 mg - 1 sl q5 mins x3 as needed for chest painFollow up:ov 1 week Julita VINCENT ov 1 m Functional Status Description No Information Available Mental Status Description No Information Available Referrals Refer to Reason for Referral Status Appt Date [facility] Possible sleep apnea; ongoing fatigue and daytime Sent 00/ somnolence. Eval and treat, thanks. [address] [place] [place] [address] [phone]
--- NOTE | 2019-09-04 10:51 | ED ---
HPI Chest Pain - HPI Summary HPI Summary: Pt is a 63 y/o F presenting to the ED with a chief complaint of chest pain. Per her medical records, she has hx of CAD with LAD lesion in 2005, abnormal stress test in 2011, catheterization in 2011. Pt was seen in the ED on 08/30/19 for fatigue and SOB x2 months, where she had a non-diagnostic stress test. She was d /ann on Amlodipine for angina, and f/ued with Dr. Betancourt yesterday, 09/03/19. Today, she woke up with chest pain again on the L side of her chest radiating into the neck that lasted 2-[address] Ojeda office who recommended that she go into the ED and admit her for a cardiac cath. She took her amlodipine after CP. - History of Current Complaint Chief Complaint: EDChestPainROMI Time Seen by Provider: 09/04/19 10:30 Hx Obtained From: Patient Onset/Duration: Started Hours Ago, Resolved Timing: Intermittent, Lasting Minutes Initial Severity: Mild Current Severity: None Pain Intensity: 0 Pain Scale Used: 0-10 Numeric Chest Pain Location: Left Anterior Chest Pain Radiates: Yes Chest Pain Radiates To:: Neck Aggravating Factor(s): Nothing Alleviating Factor(s): Spontaneous Resolution Associated Signs and Symptoms: Positive: Chest Pain. Negative: Shortness of Breath - Allergy/Home Medications Allergies/Adverse Reactions: Allergies Allergy/AdvReac Type Severity Reaction Status Date / Time No Known Allergies Allergy Verified 09/04/19 10:36 Home Medications: Home Medications Alendronate Sodium 70 mg PO WEEKLY 09/04/19 [History Confirmed 09/04/19] Amlodipine Besylate [Amlodipine 2.5 mg tab] 2.5 mg PO DAILY 09/04/19 [History Confirmed 09/04/19] Hydroxychloroquine TAB* [Plaquenil TAB*] 200 mg PO BID 09/04/19 [History Confirmed 09/04/19] Losartan TAB* [Cozaar TAB*] 25 mg PO DAILY 09/04/19 [History Confirmed 09/04/19] Topiramate 50 mg PO BEDTIME 09/04/19 [History Confirmed 09/04/19] predniSONE [Prednisone 5 MG TAB] 5 mg PO SEE INSTRUCTIONS PRN 09/04/19 [History Confirmed 11/06/19] PMH/Surg Hx/FS Hx/Imm Hx Previously Healthy: Yes Endocrine/Hematology History: Denies: Hx Anticoagulant Therapy, Hx Diabetes Cardiovascular History: Reports: Hx Angina, Hx Coronary Artery Disease, Hx Hypercholesterolemia, Hx Hypertension GI History: Reports: Hx Diverticulosis - w/ diverticulitis requiring admission Musculoskeletal History: Reports: Other Musculoskeletal History - polymyalgia rheumatica Denies: Hx Osteoporosis Sensory History: Reports: Hx Contacts or Glasses Denies: Hx Hearing Aid Opthamlomology History: Reports: Hx Contacts or Glasses - Cancer History Hx Chemotherapy: No Hx Radiation Therapy: No - Surgical History Surgery Procedure, Year, and Place: HEART ABLASION, STENT @ 2006,, appendectomy Infectious Disease History: No Infectious Disease History: Reports: Hx Clostridium Difficile Denies: Traveled Outside the [place] in Last 30 Days - Family History Known Family History: Positive: Cardiac Disease - Social History Alcohol Use: Daily Alcohol Amount: 1-2 wine/day Hx Substance Use: No Substance Use Type: Reports: None Hx Tobacco Use: No Smoking Status (MU): Never Smoked Tobacco Review of Systems Positive: Chest Pain Negative: Shortness Of Breath All Other Systems Reviewed And Are Negative: Yes Physical Exam - Summary Physical Exam Summary: Constitutional: Well-developed, Well-nourished, Alert. (-) Distressed Skin: Warm, Dry HENT: Normocephalic; Atraumatic Eyes: Conjunctiva normal Neck: Musculoskeletal ROM normal neck. (-) JVD, (-) Stridor, (-) Nuchal rigidity Cardio: Rhythm regular, rate normal, Heart sounds normal; Intact distal pulses; Radial pulses are 2+ and symmetric. (-) Murmur Pulmonary/Chest wall: Effort normal. (-) Respiratory distress, (-) Wheezes, (-) Rales Abd: Soft, (-) tenderness, (-) Distension, (-) Guarding, (-) Rebound Musculoskeletal: (-) Edema Lymph: (-) Cervical adenopathy Neuro: Alert, Oriented x3 Psych: Mood and affect Normal. Triage Information Reviewed: Yes Vital Signs On Initial Exam: Initial Vitals Temp Pulse Resp BP Pulse Ox 97.3 F 64 18 152/78 100 09/04/19 10:22 09/04/19 10:22 09/04/19 10:22 09/04/19 10:22 09/04/19 10:22 Vital Signs Reviewed: Yes Procedures - Sedation Patient Received Moderate/Deep Sedation with Procedure: No Diagnostics - Vital Signs Vital Signs Temp Pulse Resp BP Pulse Ox 09/04/19 10:34 63 12 100 09/04/19 10:22 97.3 F 64 18 152/78 100 - Laboratory Result Diagrams: 09/04/19 11:10 09/04/19 11:10 Lab Statement: Any lab studies that have been ordered have been reviewed, and results considered in the medical decision making process. - Radiology CXR Radiology Interpretation Completed By: Radiologist Summary of Radiographic Findings: No active cardiopulmonary disease. ED physician has reviewed this report. - EKG 1019 Cardiac Rate: NL - 64bpm EKG Rhythm: Sinus Rhythm ST Segment: Normal Ectopy: None EKG Comparison: Other Summary of EKG Findings: An EKG at 1019 reveals 64bpm, nml axis, nml intervals. No STEMI. No acute changes. In comparison to , pt has new Q-waves in lead III. ED physician has reviewed and interpreted this EKG. Chest Pain Course/Dx - Course Course Of Treatment: 63-year-old female with history of coronary artery disease , stent 2006, recent nondiagnostic stress test presents with chest pain. - concern for unstable angina. No CP at this time. - Labs notable for normal CBC , troponin, EKG with new Q waves in lead 3. Patient given aspirin. Patient to be admitted to hospitalist team for further workup including likely catheterization by interventional cardiology. - Dr. Garcia aware of patient, will see her on the floor. - Diagnoses Provider Diagnoses: Chest pain - Provider Notifications Discussed Care Of Patient With: Nicky Red Time Discussed With Above Provider: 11:11 Instructed by Provider To: Admit As Inpatient Discharge ED - Sign-Out/Discharge Documenting (check all that apply): Patient Departure - Discharge Plan Condition: Stable Disposition: ADMITTED TO [facility] Referrals: Jacob Davis NP [Primary Care Provider] - - Billing Disposition and Condition Condition: STABLE Disposition: Admitted to [facility] - Attestation Statements Document Initiated by Scribe: Yes Documenting Scribe: Paige Weaver Provider For Whom Scribe is Documenting (Include Credential): James Díaz MD. Scribe Attestation: Paige Goor, scribed for James Díaz MD. on 09/04/19 at 1146. Scribe Documentation Reviewed: Yes Provider Attestation: The documentation as recorded by the scribe, Paige Weaver accurately reflects the service I personally performed and the decisions made by me, James Díaz MD. Status of Scribe Document: Viewed Consult Consult: 1111 - Dr. Red will accept the pt to [facility] [place] with dx of CP. 1113 - Dr. Platt is aware of the pt.
[2019-09-04] MEDS ORDERED: Aspirin TAB* 325 MG PO ONE (10:57)
[2019-09-04] MEDS ORDERED: Aspirin EC TAB* 325 MG PO ONE (10:57)
[2019-09-04 11:29] LABS: ABS Eosinophils 0.3 10^3/ul (0-0.6); ABS Lymphocytes 1.8 10^3/ul (1.0-4.8); ABS Monocytes 0.6 10^3/ul (0-0.8); ABS Neutrophils 3.9 10^3/ul (1.5-7.7); Eosinophil % 3.9 %; Hematocrit 39 % (35-47); Hemoglobin 13.3 g/dL (12.0-16.0); Lymphocyte % 27.8 %; Mean Corpuscular HGB Conc 34 g/dL (31-36); Mean Corpuscular Hemoglobin 32 pg (27-31); Mean Corpuscular Volume 92 fL (80-97); Mean Platelet Volume 7.4 fL (7.4-10.4); Nucleated Red Blood Cells % 0.1; Platelet Count 229 10^3/uL (150-450); Red Cell Distribution Width 14 % (10-15); White Blood Count 6.6 10^3/uL (3.5-10.8)
[2019-09-04 11:34] LABS: INR 1.04 (0.82-1.09)
[2019-09-04 11:42] LABS: Troponin I 0.01 ng/mL (<0.04)
[2019-09-04 11:43] LABS: Albumin 4.2 g/dL (3.2-5.2); Albumin/Globulin Ratio 1.6 (1-3); BUN/Creatinine Ratio 14.5 (8-20); Calcium 9.2 mg/dL (8.6-10.3); EGFR African American 92.7 (>60); EGFR Non-African American 76.6 (>60); Globulin 2.6 g/dL (2-4); Potassium 3.8 mmol/L (3.5-5.0); Total Bilirubin 0.5 mg/dL (0.2-1.0); Total Protein 6.8 g/dL (6.4-8.9)
[2019-09-04] MEDS ORDERED: Acetaminophen TAB* 325 MG PO PRN (12:36)
[2019-09-04] MEDS ORDERED: predniSONE TAB* 5 MG PO PRN (14:22)
--- NOTE | 2019-09-04 16:25 | HP ---
CC: TONY Lewis; Yo Betancourt MD * HISTORY AND PHYSICAL: DATE OF ADMISSION: 09/04/19 PRIMARY CARE PHYSICIAN: TONY Lewis SKATE HOP: Yo Betancourt MD HEALTHCARE PROXY: Cam, her . CODE STATUS: Full. CHIEF COMPLAINT: Intermittent chest pain for 5 days. HISTORY OF PRESENT ILLNESS: Ms. Robledo is a 63-year-old woman with coronary artery disease, status post stent in 2005, hypertension, polymyalgia rheumatica , who was presenting with intermittent left-sided chest pain for 5 days. She reports that this chest pain is left-sided and describes as "crushing." The pain radiates to her jaw and left shoulder. The pain has woken her up from sleep every other morning for the last 5 days. When she awakes from sleep, she does not exert herself, instead she lies in bed until the pain subsides. She has not tried to take nitro during this time. She denies associated shortness of breath, diaphoresis, nausea, or vomiting. She reports that this underliner chest pain feels exactly the way her chest pain was in 2005, which she reports she had "all workup negative" until a catheterization was done and they found that she had a 95% occlusion of her LAD, which was stented. She denies fevers, chills, palpitations, abdominal pain, constipation, diarrhea. She did present with this pain 5 days ago to the emergency room, and at that time, she was admitted to the observation unit for chest pain rule out. Stress echo was suboptimal because the patient was unable to get up to the maximum heart rate secondary to fatigue; however, she did not show any acute ischemic changes on her EKG and she had no wall motion abnormalities during the test. Her troponins were negative. She had no further abnormalities on her blood work and her EKG was normal. On telemetry, she had one isolated PAC, but no ST segment changes and no other arrhythmias. The patient was encouraged to follow up closely in clinic and reestablish care with outpatient Cardiology. As the chest pain continued to occur after that time, the patient had called her outpatient soft top installer, Dr. Betancourt who instructed her to come to the emergency room. In the emergency room, the patient was loaded with aspirin. Dr. Platt of Cardiology was called to evaluate the patient and she was admitted to the hospitalist service for further care. Her initial troponin was negative. Her EKG appears to have new Q-waves in III. PAST MEDICAL HISTORY: 1. Coronary artery disease with LAD 95% occlusion, status post stent in 2005. 2. Hypertension. 3. WPW, status post ablation in 2000. 4. Diverticulosis, status post colectomy. 5. 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 MEDICATIONS: 1. Aspirin 81 mg daily. 2. Amlodipine 2.5 mg daily. 3. Losartan 25 mg daily. 4. Bisoprolol/hydrochlorothiazide 10/12.5 daily. 5. Simvastatin 20 mg daily. 6. Hydroxychloroquine 200 mg twice a day. 7. Prednisone 5 mg daily. 8. Topiramate 50 mg at bedtime. 9. Alendronate 70 mg weekly. 10. Cetirizine 10 mg daily. ALLERGIES: No known drug allergies. FAMILY HISTORY: Mother with rheumatoid arthritis and coronary artery disease. Father with diabetes. SOCIAL HISTORY: The patient lives with her , Cam, who is her healthcare proxy. 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 She reports smoking for 2 years in college, but no tobacco use since then. She drinks 1 to 2 glasses of wine a day. Denies recreational drug use. She has 2 grown children. REVIEW OF SYSTEMS: A complete 10-point review of systems was performed and pertinent positives and negatives are listed in the HPI. PHYSICAL EXAMINATION GENERAL: She is a well-appearing woman, in no acute distress. She is alert, interactive and very pleasant. VITAL SIGNS: Afebrile, heart rate 60, blood pressure 134/63, respiratory rate 13, oxygen saturation 99% on room air. HEENT: With pupils equal, round and reactive to light and accommodation. Sclerae anicteric. Moist mucous membranes. NECK: Supple. No JVD. LUNGS: Clear to auscultation bilaterally. CARDIAC: Regular rate and rhythm. No murmurs, gallops, or rubs. ABDOMEN: Soft, nontender, nondistended. EXTREMITIES: Warm and well perfused. No evidence of edema. NEURO: No focal deficits. A and O x3. DIAGNOSTIC STUDIES/LAB DATA: CBC, BMP, INR, LFTs within normal limits. Troponin negative x2. Chest x-ray without active cardiopulmonary disease. EKG: Normal sinus rhythm, 64 beats per minute. No acute ST changes. New Q- waves in lead III. ASSESSMENT AND PLAN: Ms. Robledo is a 63-year-old woman with coronary artery disease, hypertension, polymyalgia rheumatica, and history Brando-Parkinson- White status post ablation, who is presenting with 5 days of intermittent substernal crushing chest pain, waking her up from sleep, that is spontaneously resolved. 1. Chest pain. Concerning for atherosclerotic cardiovascular disease versus [place]. The patient has a third troponin pending. Interventional Cardiology is aware of the patient and will evaluate. We will continue the patient's home aspirin, amlodipine and statin, pending further recommendations from Cardiology. The patient will remain on telemetry. We will check A1c and lipids in the morning. 2. Hypertension. Continue home losartan 25, bisoprolol 5 mg daily, hydrochlorothiazide 12.5 mg daily, and amlodipine 2.5 mg daily. 3. Polymyalgia rheumatica. Continue chronic home prednisone 5 mg daily. 4. DVT prophylaxis: Subcu heparin. 5. Fluids, electrolytes, and nutrition: The patient will continue heart healthy diet today and will be n.p.o. at midnight for test. 6. Code status: Full. TIME SPENT: Approximately 60 minutes was spent on admission of this patient, more than half of which was spent at bedside for interview and exam. [id number]/[facility] #: [id number] LESLEE
[2019-09-04] MEDS ORDERED: Diazepam TAB(*) 5 MG PO PRN (18:25)
[2019-09-04] MEDS ORDERED: diPHENhydraMINE PO* 25 MG PO PRN (18:25)
[2019-09-04] MEDS ORDERED: Enoxaparin(*) 40 MG/0.4 ML SYR SUBCUT ONE (20:00)
[2019-09-04] MEDS: Hydroxychloroquine TAB* 200 MG PO SCH (20:18)
--- NOTE | 2019-09-04 20:51 | CONS ---
CC: TONY Lewis; Dr. Yo Betancourt, [facility] * CARDIOLOGY CONSULTATION REPORT: DATE OF CONSULT: 09/04/19 INDICATION FOR CONSULT: Asked by the hospitalist service to see Mindy Robledo after recurrent presentation with severe chest discomfort radiating up towards the left arm, occurring in the stable manager hours while at rest in bed , now raising question of need for possible repeat cardiac catheterization. HISTORY OF PRESENT ILLNESS: The patient is a pleasant 63-year-old female who is known to me from her prior cardiac history. Specifically, she had undergone an abnormal exercise nuclear stress test back on 05/24/06 revealing a very mild reversible ischemia involving the anterior apical region. There appeared to be fairly well preserved left ventricular systolic function. The EKG portion revealed ST segment depression raising the question of possible ischemia. The patient underwent cardiac catheterization on 05/25/06 with a left anterior descending artery proximal to mid 90% blockage and no disease in the circumflex of the right coronary artery. The patient underwent stent placement at the [facility] with a 3.5 x 12 mm long Taxus drug-eluting stent. Over the course of the years, she had had a recurrent stress test performed in 2011, during which time, there was a question of a very small focus of mild mid anterior wall ischemia. Her EKG again developed ST segment depressions. Cardiac catheterization was repeated on 11/30/11, which showed that her coronary arteries had small caliber distal vessels with a widely patent mid LAD stent. Medical management was pursued and she has done fairly well until more recently. She states that for the past month or so during the morning hours after she takes her medication, she feels very blah and tired and notices that sometimes her blood pressure will drop into the 90s. Interestingly one time within the past week; however, today after she had taken her medications and started feeling blah again, she noted that her blood pressure was actually 145. Starting last Monday, she was lying in bed and developed the onset of a chest discomfort that seemed to gradually build and become extremely intense going up her throat and down her left arm but only lasted 1 minute and that was completely gone. It was not associated with nausea, vomiting, or diaphoresis. She went to the emergency room, was admitted. Her cardiac enzymes were cycled and they were found to be negative and she subsequently underwent an exercise stress echo performed on Monday. This revealed her exercising with a blunted heart response due to beta- blockers only achieving 72% of age-predicted maximal heart rate, her blood pressure did appropriately go up and more importantly, her echo images showed augmentation of contractility to all regions with exercise. There was no hypokinesis or dyskinesis produced with exercise. The patient was discharged home. On Monday, she did okay with no recurrence of symptoms and on Monday had no recurrent symptoms, during which time, she went out to [place] for dinner but did not do overly exertional activity. Monday a.m., she then got the same symptoms, this time perhaps lasting 5 to 6 minutes, again very early in the morning while in bed. On Monday, she actually walked up and down in her house from the basement up to the first floor carrying laundry, doing multiple trips without provoking symptoms. Today, again she was lying in bed, turned on her side and at 6:25, she was awakened by her chest discomfort again lasting a little bit longer perhaps 2 to 3 minutes. With that in mind, she spoke with Dr. Betancourt, who advised her to go to the hospital to be readmitted and considered diagnostic cardiac catheterization to get a definitive answer. Her cardiac risk factors included history of hyperlipidemia as well as hypertension. She currently does not smoke and had quit in the 70s. She has a family history of heart disease and diabetes, but she herself denies any history of diabetes. 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 PAST MEDICAL HISTORY: Includes the hypertension, hyperlipidemia, as well as the coronary artery disease. She also has a history of Dcqlu-[id number]-Zrvul status post an ablation in 2000. She has the rheumatological disorders with PMR in addition to her dermatomyositis. CURRENT MEDICATIONS: At home include: 1. Aspirin 81 mg a day. 2. She recently yesterday was prescribed amlodipine 2.5 mg. 3. Losartan was decreased from 100 mg a day to 25 mg a day. 4. She has chronically been on bisoprolol/hydrochlorothiazide 10/12.5 daily. 5. Simvastatin 20 mg daily. 6. Hydroxychloroquine 200 mg twice a day. 7. Prednisone 5 mg a day. 8. Topiramate 50 mg at bedtime. 9. Alendronate 70 mg weekly. 10. Cetirizine 10 mg daily. ALLERGIES: She denies any known drug allergies. REVIEW OF SYSTEMS: As per the H and P with no additional changes. PHYSICAL EXAMINATION: When I see her now, this pleasant female in no acute distress. Vital signs reveal blood pressure 141/65, pulse is regular at 60, respirations 18, O2 saturation was 100% earlier checked. Neck was supple with no increased JVP. Carotid without bruits. Conjunctivae are pink. Sclerae clear. Mouth revealed moist mucosa. Lungs revealed no accessory muscle usage. There was good excursion. There was no significant rales, rhonchi, or wheezes. Heart reveals no visible heaves, no palpable heaves or thrills. Normal S1, S2. No significant S3, S4 gallop. No significant systolic or diastolic murmur. Abdomen is soft, nontender without organomegaly. Extremities are without clubbing, cyanosis, or pitting edema. Peripheral pulses are intact. Femoral pulses noted without bruits. Neuro: The patient is alert, oriented with normal mentation. Musculoskeletal: The patient with normal gait. Psychiatric: The patient with normal affect. DIAGNOSTIC STUDIES/LAB DATA: Laboratory results revealed hemoglobin and hematocrit of 13.3 and 39 with a platelet count of 229,000, white count 6600. INR was 1.04. Sodium 135, potassium 3.8, chloride 103, bicarb 25, BUN and creatinine 11 and 0.7. The total bilirubin was 0.5, SGOT 25, SGPT 28. Troponin was 0.01, 0.01, 0.01 in 3 sets. Total protein was 6.8, albumin 4.2. Electrocardiogram revealed normal sinus rhythm, heart rate 64, [place] interval 0.18 , QRS 0.09, QT 0.42, axis is +17 degrees. There is mild scooping of the ST segments in I and aVL, slightly in V5 and V6. Chest x-ray report revealed no acute cardiopulmonary disease. OVERALL ASSESSMENT: Mindy presents now with a known history of coronary artery disease with recurrent episodes now of chest discomfort do sound atypical in nature; however, she is adamant that these are the same type of symptoms she had prior to her stent placement back in 2005. At this point in time, she wishes to pursue a cardiac catheterization to get a definitive answer in light of recurrent episodes. The risks and benefits were explained to her and further management will be made pending the results of them. I will put in basic orders and we will start hydration early tomorrow morning and further management will be made pending the results of the cardiac catheterization. Of note, the differential obviously could include from a cardiac standpoint perhaps coronary artery spasm, for which medical management as Dr. Betancourt was starting with calcium channel blockers would be appropriate. Thank you very much for having asked me to see her in consult. We will await the results of her coronary arteriography. At this point in time, I will add a cholesterol profile check for tomorrow morning, just to make sure that she is in good control with her history of coronary artery disease. [id number]/[facility] #: [id number] LESLEE
[2019-09-04] MEDS ORDERED: Topiramate TAB(*) 25 MG PO SCH (21:00)
[2019-09-04] MEDS ORDERED: amLODIPine TAB* 5 MG PO SCH (21:00)
[2019-09-05] MEDS ORDERED: NS 0.9% 1000 ML** 1,000 ML IV SCH ×2 (06:00→09:30)
[2019-09-05] MEDS ORDERED: Heparin(*) 1000 UNIT/ML 10 ML VIAL CATH LAB IV ONE (07:47)
[2019-09-05] MEDS ORDERED: fentaNYL* 50 MCG/ML 2 ML VIAL (100 MCG VIAL) ONE (07:47)
[2019-09-05] MEDS ORDERED: VERAPAMIL 2.5 MG/ML 2 ML VIAL ** 5 mg/2 ml ONE (07:47)
[2019-09-05] MEDS ORDERED: Midazolam* 1 MG/ML 5 ML VIAL (5 MG) ONE (07:47)
[2019-09-05] MEDS ORDERED: Lidocaine 1% INJ* 10 MG/ML 30 ML SDV ONE (07:48)
[2019-09-05] MEDS ORDERED: nitroGLYCERIN DRIP* 25,000 MCG/250 ML BTL ONE (07:48)
[2019-09-05] MEDS ORDERED: Heparin 2 UNITS/ML IVPREMIX* 2,000 ML IV ONE (07:48)
[2019-09-05] MEDS ORDERED: Iohexol 350 (CONTRAST) 200 ML MDV IV ONE ×2 (07:48→07:49)
[2019-09-05] MEDS ORDERED: Hydrochlorothiazide TAB* 25 MG PO SCH (09:00)
[2019-09-05] MEDS ORDERED: Cetirizine* 10 MG TAB PO SCH (09:00)
[2019-09-05] MEDS ORDERED: Atorvastatin* 10 MG TAB PO SCH (09:00)
[2019-09-05] MEDS ORDERED: Bisoprolol TAB* 5 MG PO SCH (09:00)
[2019-09-05] MEDS ORDERED: Aspirin 81 mg CHEW TAB* 81 MG TAB.CHEW PO SCH (09:00)
[2019-09-05] MEDS ORDERED: amLODIPine TAB* 5 MG PO SCH (10:00)
[2019-09-05] MEDS ORDERED: amLODIPine TAB* 5 MG ONE (10:01)
[2019-09-05] MEDS: Hydroxychloroquine TAB* 200 MG PO SCH (10:11)
--- NOTE | 2019-09-05 11:52 | CATH ---
CC: TONY Lewis; Dr. Yo Betancourt, [facility] * CARDIAC CATHETERIZATION REPORT: DATE OF PROCEDURE: 09/05/19 - ROOM #441 INDICATION FOR PROCEDURE: Asked by Dr. Betancourt to perform diagnostic coronary arteriography with recurrent episodes of chest discomfort, brief in nature, occurring while lying in bed in the morning hours with a history of prior stent placement in the proximal LAD in 2006 with patency documented in 2011 by cardiac catheterization and a recent exercise stress echo that was suboptimal in nature due to inability to hit target heart rate but no evidence of ischemia by wall motion study with appropriate augmentation of all areas of myocardium at submaximal heart rate. PROCEDURE: Coronary arteriography, left heart catheterization, left ventriculography, diastolic fractional flow reserve analysis of mid LAD lesion as well as distal area of LAD past an intramyocardial segment. CONSENT: The patient was interviewed and examined on the floor of the hospital where the risks and benefits were explained. She understood them and wished to proceed. APPROACH UTILIZED: Ultrasound assessment of the right radial artery was performed in the holding area of the salvage laborer, found to be borderline acceptable for an approach and as such this was the approach taken. PRECARDIAC CATHETERIZATION LABORATORY RESULTS: Hemoglobin and hematocrit of 13.3 and 39 with a platelet count of 226,000. BUN 11, creatinine 0.7. Sodium 135, potassium 3.8, chloride 103, bicarb 25, troponin 0.01. EQUIPMENT UTILIZED: 1. Right radial artery sheath was a 6 Haitian Glidesheath Slender. 2. Diagnostic coronary catheter was a 5 Haitian TIG 4 catheter. 3. The diagnostic wires were both a Wholey 145 cm length and a 260 length Nathan curved wire for catheter exchanges. 4. The guiding catheter for DFR analysis was a 5 Haitian IL 3.5 curved catheter. 5. The pressure wire utilized was a COMET pressure guidewire. 6. Closure device utilized was a regular length Vasc Band by [employer]. 7. The left heart catheterization catheter was a 5 Haitian TIG short radial pigtail catheter. MEDICATIONS GIVEN: The patient received a radial artery cocktail with 3000 units of heparin, 300 mcg of nitroglycerin, and 3 mg of verapamil. An additional 2000 units were given to obtain a therapeutic ACT for pressure wire analysis. The patient received 1% lidocaine locally. The patient had received intracoronary nitroglycerin 150 mcg. Precardiac catheterization, she received Valium and Benadryl for sedation. DESCRIPTION OF PROCEDURE: The patient was brought to the cardiovascular laboratory where a formal time-out was performed. She was prepped and draped in sterile fashion, and under ultrasound guidance, the right radial artery was cannulated and the sheath was placed. Coronary arteriography was performed utilizing the TIG catheter followed by left heart catheterization. Left ventriculography was performed utilizing a total of 24 cc of Omnipaque dye at a rate of 12 cc per second. Of note, the decision was made to perform pressure wire analysis of the mid LAD lesion just after the stent as well as the distal LAD. The patient received additional heparin therapy and a therapeutic ACT was obtained. Guiding catheter was placed and the wire was first equilibrated just outside the guide and then passed down into the LAD just past the mid blockage in the LAD. DFR analysis was performed. The catheter was then advanced into the most distal portion of the LAD past the intramyocardial portion and DFR analysis was obtained. The wire was then removed and an injection was made to assess the artery to make sure there were no problems following wire placement. The wire and the guiding catheter removed and the sheath was removed and hemostasis was obtained with a Vasc Band. The reverse Barbeau was a B. The total contrast used was 114 mL of Omnipaque. The radiation exposure included 9.3 minutes of fluoro time. The air kerma radiation was 1100 milligray. The DAP radiation was 6526 microgray per meter squared. RESULTS: HEMODYNAMIC DATA: Left heart catheterization revealed central aortic pressure recorded at 174/ 76 with a mean of 116, left ventricular pressure 166 over left ventricular end diastolic pressure of 24 mmHg. LEFT VENTRICULOGRAPHY: Performed in the DOTSON projection revealed symmetrical contraction of the left ventricle. There were no focal wall motion abnormality noted. Mild mitral regurgitation was noted. The overall ejection fraction was estimated at 60%. CORONARY ARTERIOGRAPHY: A. Left coronary artery: 1. Left main widely patent and short in nature. 2. Left anterior descending artery. The proximal portion of the left anterior descending artery revealed a stent in it. There was mild in-stent restenosis of 15% to 20%. Proximally, in the left anterior descending artery, there was a 20% narrowing as well. Just past the stent was an area of 35% narrowing in its worst view, less in other views. After this point, in the left anterior descending artery, there was a segment in the LAD that appeared to be intramyocardial. There is a change to the caliber of the LAD with perhaps a 45 to 50%( in worst view, less significant in other angles) area of narrowing compared to more proximally and minimum change compared to distally. There did not appear to be significant systolic milking of this area. No significant fixed lesion was seen. The artery then traverse to the apical region and minimally onto the distal inferior wall. No other significant narrowing was seen. The LAD supplied multiple thin first, second, and third diagonal branches, which were small in caliber followed by a moderate size mid diagonal branch. No significant disease was seen in the mid diagonal branch. 3. Circumflex artery - a nondominant vessel supplying a high first obtuse marginal branch with no significant disease. The continuation of the circumflex supplied multiple obtuse marginal branches, the first 3 of which were somewhat small in caliber, the last one was moderate size and caliber along the low posterior wall. No significant obstruction was seen throughout the circumflex system. B. Right coronary artery - a dominant vessel supplying the PDA only. There are no significant posterior left ventricular branches. There are multiple acute marginal branches. There is mild luminal irregularities seen but no significant obstruction. PRESSURE WIRE ANALYSIS OF THE MID AND DISTAL LAD: A. Mid LAD - DFR analysis of the 35% lesion after the LAD revealed a value of 0.95 suggesting that the narrowing was not of hemodynamic significance. B. Distal LAD after intramyocardial segment - result was 0.89 suggesting borderline hemodynamically significant . OVERALL ASSESSMENT: Mild fixed coronary artery disease as described above. DFR of mid lesion was not found to be significant. Of note, past the intramyocardial area, it was borderline of significance, but again, of note, this may have been also with wire bias producing perhaps transiently spasm to the area. At this point in time, clearly no fixed lesion exists that should be a cause of resting symptoms. Aggressive medical management with perhaps antianginal regimen with calcium channel blockers or nitrites in addition to her current beta-margot therapy may be the best route of treatment given the possibilities of syndrome X or spasm. Given the fact that the 35% blockages after the stent is new compared to 2012, I would favor aggressive [id number] dose statin therapy and consideration to switching her to atorvastatin 40 mg a day should be entertained. This was discussed with both Dr. Betancourt as well as the hospitalist Dr. Red, who is managing the case. The patient will have a wound followup within the next week with my partner Dr. Escoto and will follow up with Dr. Betancourt after that. [id number]/[facility] #: [id number] LESLEE
[2019-09-05] MEDS: Losartan TAB* 25 MG PO SCH ×2 (11:57→12:11)
[2019-09-05 16:51] VITALS: BP 124/59
--- NOTE | 2019-09-05 19:52 | DS ---
CC: TONY Lewis; Dr. Yo Betancourt * DISCHARGE SUMMARY: DATE OF ADMISSION: 09/04/19 DATE OF DISCHARGE: 09/05/19 PRIMARY CARE PHYSICIAN: TONY Lewis COLLEGE HIRE: Dr. Yo Betancourt. PRIMARY DIAGNOSES: 1. Coronary artery disease. 2. Vasospastic angina. SECONDARY DIAGNOSES: 1. Hypertension. 2. Rheumatologic disease, not otherwise specified. 3. Possible history of polymyalgia rheumatica and dermatomyositis. CONSULT: Dr. Platt of Cardiology. PROCEDURES: Cardiac catheterization on 09/05/19 DISCHARGE MEDICATIONS: 1. Aspirin 81 mg daily. 2. Atorvastatin 40 mg at bedtime. 3. Amlodipine 5 mg at bedtime. 4. Bisoprolol/hydrochlorothiazide 10-12.5 daily 5. Losartan 25 mg daily. 6. Topiramate 25 mg in the morning, 50 mg at night. 7. Prednisone 5 mg daily. 8. Hydroxychloroquine 200 mg twice a day. 9. Alendronate 70 mg weekly. 10. Cetirizine 10 mg daily HISTORY OF PRESENT ILLNESS: Ms. Robledo is a 63-year-old woman with a history of CAD status post stent in 2005 , hypertension, polymyalgia rheumatica, who is presenting with intermittent left -sided chest pain for 5 days. She reports the chest pain is left-sided and crushing in nature; it radiates to her jaw and left shoulder. The pain has awoken her from sleep every other morning for the last 5 days. When she awakens from sleep, she does not exert herself and said she lies in bed until the pain subsides. She has not yet tried nitro during these episodes. She denied associated shortness of breath, diaphoresis, nausea, and vomiting. 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 The patient denies fevers, chills, palpitations, abdominal pain, constipation, diarrhea. Five days ago when the pain started, she presented to the emergency room, was admitted to observation for ACS rule out. A stress echo was suboptimal because the patient was unable to get up to the maximum heart rate secondary to fatigue; however, she did not show any acute ischemic changes on her EKG and she had no wall motion abnormalities on her echo. Her troponins were negative 5 days ago and her EKG was normal. She followed up with Dr. Betancourt in cardiology clinic, who prescribed amlodipine, which the patient had not yet started. As the chest pain continued to occur every other morning, the patient called Dr. Betancourt again who instructed her to come to the emergency room for further evaluation. HOSPITAL COURSE: In the emergency room, the patient was loaded with aspirin. Dr. Platt of Cardiology was called to evaluate the patient and she was admitted to the hospitalist service to prepare for catheterization in the next day. Her EKG revealed normal sinus rhythm with heart rate 64 with mild scooping of the ST segments in I, aVL and slightly in V5 and 6 with Q-wave in III. She did not experience recurrence of her chest pain throughout admission except during cardiac catheterization. By next morning, she underwent catheterization, which showed mild fixed coronary artery disease; DFR of mid lesion was not significant. She was noted to have 35% blockage distal to her prior stent, which is new compared to 2012. For this reason, it was suggested that she be switched to atorvastatin 40 from simvastatin. The patient tolerated the procedure well and was deemed safe for discharge home. A complete 10-point review of systems was performed on the day of discharge and symptoms were negative. PHYSICAL EXAM: Afebrile, heart rate 62, blood pressure 129/61, respiratory rate 18, oxygen saturation 98% on room air. In general, she is a well-appearing , pleasant woman in no acute distress who is alert and interactive, able to ambulate around her room. Neck: Supple with no increased JVP. HEENT: With moist mucous membranes. OP clear. Lungs: Clear to auscultation bilaterally. Heart: Regular rate and rhythm. No murmurs, gallops, or rub. Abdomen: Soft, nontender, nondistended. Extremities: Warm, well perfused without evidence of edema. Neuro: A and O x3, no focal deficits, normal gait. Psychiatric: Normal affect. PERTINENT DIAGNOSTIC STUDIES: CBC, BMP, coags, and LFTs are unremarkable. Hemoglobin A1c is 5.9%. LDL 62, HDL 48, triglycerides 134. Troponins negative x3. Chest x-ray without active cardiopulmonary disease. DISCHARGE PLAN: The patient will be discharged home with the following notable medication changes: Her simvastatin was changed to atorvastatin 40 and her amlodipine was increased to 5 mg nightly. She was scheduled to have a wound check with the police detective next week and she should also follow up closely with Dr. Betancourt for ongoing management of her anginal symptoms and for modification of her cardiac risk factors. Her and her were educated on return precautions, which include but are not limited to recurrence of chest pain or new symptoms such as exertional nature or new associated symptoms of dyspnea and diaphoresis. She was encouraged to eat a healthy diet low in processed foods and resume activity as tolerated with a good exercise regimen. She was also encouraged to work on stress management and continue to abstain from cigarettes. DISPOSITION: Home. CONDITION: Good. TIME SPENT: Approximately 60 minutes was spent on discharge of this patient, more than of which was spent with care coordination at bedside and for interview and exam. [id number]/[facility] #: [id number] MTDD
== END 2019-09-05 17:38 | disposition home or self-care (01) ==
LOC: ED 10:15 → MEDTELE 12:36 → INTOOBSV 12:36 → MEDTELE 17:50
PROVIDERS: ADMIT Internal Medicine; ATTEND Internal Medicine
DX: I25.111 Atherosclerotic heart disease of native coronary artery with angina pectoris with documented spasm (principal); M79.0 Rheumatism, unspecified; I10 Essential (primary) hypertension; K57.90 Diverticulosis of intestine, part unspecified, without perforation or abscess without bleeding; I45.6 Pre-excitation syndrome; Z79.82 Long term (current) use of aspirin; Z79.899 Other long term (current) drug therapy; R07.9 Chest pain, unspecified
CPT/HCPCS: 36415; 71046; 80053; 80061; 83036; 84484; 85025; 85347; 85610; 87641; 93005; 93458; 96372; 99284; A9270-GY; G0378; J1644; J1650; J2250; J3010